=== PATIENT | female | born 1945 | race Caucasian/White ===

== ENCOUNTER 2025-02-13 08:07 | Inpatient (IN) ==
[2025-02-13] MEDS: KETOROLAC TROMETHAMINE 15 MG/ML VIAL IV STA (09:05)
[2025-02-13] MEDS: GABAPENTIN 300 MG CAP PO ONE (09:05)
[2025-02-13 09:26] LABS: Hematocrit (blood only) 37.8 % (37.0-47.0); Hemoglobin 12.5 g/dl (12.0-16.0); Immature Granulocytes # (auto) 0.14 K/uL (0.01-0.20); Immature Granulocytes % (auto) 1.6 %; Mean Corpuscular Hemoglobin 28.3 pg (25.0-34.0); Mean Corpuscular Volume 85.7 fL (80.0-100.0); Platelet Count 306 K/uL (130-400); RDW Standard Deviation 46.0 fL (36.4-46.3); Red Blood Count 4.41 M/uL (4.20-5.40); White Blood Count 8.85 K/ul (4.8-10.8)
[2025-02-13 09:45] LABS: Alanine Aminotransferase 31 U/L (7-52); Albumin Globulin Ratio 1.4 (0.9-2); Albumin Level 4.2 gm/dl (3.4-5.0); Alkaline Phosphatase 82 U/L (34-104); Anion Gap 10 (3-11); Bilirubin,Total 0.7 mg/dl (0.2-1.0); Blood Urea Nitrogen 16 mg/dl (6-23); Calcium 9.3 mg/dl (8.6-10.3); Carbon Dioxide 24 mmol/L (21-32); Chloride 93 mmol/L (98-107); Globulin 3.0 gm/dl (2.5-4.0); Glucose 114 mg/dl (70-99(Fasting)); Potassium 4.1 mmol/L (3.5-5.1); Sodium 127 mmol/L (136-145); Total Protein 7.2 gm/dl (6.0-8.3)
--- NOTE | 2025-02-13 10:00 | Emergency Department Note ---
Impression & Plan Hyponatremia, Bilateral lower extremity pain, DDD (degenerative disc disease), lumbar ED Provider Note NAME: MENDOZA GIL AGE: 79 SEX: F : 1945 ARRIVES VIA: Walk-In INFORMANT: Patient, family ED PROVIDER(S): Guerrero Antunez DO CHIEF COMPLAINT: lower extremity pain HPI: This is an 79-year-old female with no significant PMHx presenting to [facility] for further evaluation of lower extremity pain. Patient is accompanied by family members who provide additional history. The patient and her family members report ongoing lower extremity pain. She has never had anything like this before. States is worse in the anterior aspects of her bilateral thighs. Around the hallway down to her feet. Patient states that she has been in and out of the hospital. She has been in [facility] as well as [facility]. They deny fever or chills. No cough or congestion. Denies chest pain or palpitations. No shortness of breath. They deny abdominal pain, nausea and vomiting. No urinary complaints. No recent changes in bowel movements. Patient denies recent changes in medications or OTC supplements. Patient offers no other complaints, today. ADDITIONAL HISTORY OBTAINED: Per HPI Chronic Medical/Social Conditions Affecting Care: Per HPI PAST MEDICAL HISTORY: See Below PAST SURGICAL HISTORY: See Below FAMILY HISTORY: See Below SOCIAL HISTORY: See Below HOME MEDICATIONS: See Below ALLERGIES: See Below VITALS: See Below PHYSICAL EXAMINATION: GENERAL: Sitting up in bed, alert, well appearing, well nourished, no distress, non-toxic EYE EXAM: normal conjunctiva. PERRL and EOM's grossly intact. OROPHARYNX: no exudate, no erythema, lips, buccal mucosa, and tongue normal and mucous membranes are moist NECK: supple, no nuchal rigidity, no adenopathy, non-tender LUNGS: Clear to auscultation. Normal chest wall mechanics HEART: no murmurs, regular rate, regular rhythm ABDOMEN: abdomen soft, non-tender, no masses, no rebound or guarding. BACK: Back is symmetrical on inspection and there is no deformity, no midline tenderness, no CVA tenderness. No midline TTP or step offs. 5/5 strength in b/l LEs that are neurovascularly intact. 1/4 patellar reflexes bilaterally. EHL strength 5/5 bilaterally. SKIN: no rashes and no bruising UPPER EXTREMITIES: upper extremities are grossly normal. LOWER EXTREMITIES: No pitting edema. NEURO EXAM: Normal sensorium, GCS 15, normal speech, no gross weakness of arms, no gross weakness of legs. MEDICAL DECISION MAKING: Differential diagnoses includes but not limited to LBP, DDD, sciatica, UTI, AAA, pyelonephritis, nephrolithiasis, pancreatitis, musculoskeletal strain, muscle spasm, cord compression, spinal stenosis, polymyalgia rheumatica, electrolyte derangements, dehydration, neuropathic pain In summary, this is a 79 year old female who presented with lower extremity pain. Differential as above. Nursing notes and pertinent past medical records reviewed. Vital signs reviewed and the patient is mild tachycardia but otherwise afebrile and HDS. History and presentation revealed as above. Physical examination revealed as above. As a result of my initial evaluation, Patient is reporting severe lower extremity pain that is worse in her proximal thighs. It does run into the patient's lower extremities. Seems to be similar to neuropathic pain or possible claudication. She has palpable 2+ DP pulses. She is neurovascularly intact. Will obtain basic lab work as well as MRI for further characterization of possible lumbar spine pathology. Diagnostics interpreted by me include EKG and cardiac monitoring as listed below: -Cardiac Monitoring: An order was placed for continuous cardiac monitoring. The monitor shows a rate of 70-100s with regular rhythm. Patient completed laboratory studies and imaging. Results independently interpreted by me are acute hyponatremia that I feel is likely related to diet but will collect serum osmolality, urine osmolality as well as urine sodium. Inflammatory markers are mildly elevated including ESR 49 and a CRP of 0.78. No significant leukocytosis or anemia. Electrolytes and kidney function are otherwise unremarkable. I had a prolonged discussion with the patient and her family members that I do not feel that IV opiates will work well for her pain. I do feel that this is a component of neuropathic pain. Patient was managed initially with NSAIDs as well as gabapentin. Patient was given a dose of Valium while in the emergency department.. The patient was managed with IVFR and multimodal pain control. Patient's pain has poorly been controlled. MRI is unremarkable for pathology to suggest this. I do believe the patient likely has neuropathic pain but MRI noted possible ovarian mass. Will obtain a ultrasound for further characterization. Further workup for the patient's acute hyponatremia ordered. Patient will need inpatient management. Ultimately, the decision was made to admit the patient for severe pain with ambulatory dysfunction and acute hyponatremia. It was recommended to admit this patient at 1138. I discussed the case with the hospitalist service via telephone/Tiger[employer] and they are agreeable to admit the patient to their services. Based on the above, including the patient's age, coexisting illnesses, labs, imaging, and exam findings the decision to treat as an inpatient. I discussed the patient with the hospitalist team who recommended admission to their services. They received the medications, treatments, interventions indicated above and their condition remained stable. I discussed my findings with the patient and their family and they understand and agree with the treatment plan. All patient / family questions were answered to their satisfaction. Consults/Care Managements Discussions: Per MDM ER treatment provided: See above Procedures:none Critical Care: None The chart was completed utilizing [employer] Speech voice recognition software. Grammatical errors, random word insertions, pronoun errors, and incomplete sentences are an occasional consequence of this system due to software limitations, ambient noise, and hardware issues. Any formal questions or concerns about the content, text, or information contained within the body of this dictation should be directly addressed to the physician for clarification. Past Med/Surg History Problem List (Updated 02/13/25 @ 23:42 by Guerrero Antunez DO) DDD (degenerative disc disease), lumbar (Acute) Lumbar spondylosis Lumbar stenosis without neurogenic claudication Lumbar radicular pain Spondylolisthesis, lumbar region Bilateral lower extremity pain (Acute) Generalized weakness Pelvic cyst in female Hyponatremia (Acute) Bladder distension No pertinent past medical history Family History (Updated 02/13/25 @ 14:04 by Nory Pierre PA-C) Denies family history of Diabetes Heart disease Cancer Social History Smoking Status: Never smoker Hx Alcohol Use: No Hx Substance Use: No Preferred Language: Salvadorean Communication Ability: Effective General Internist Required: No Beliefs That Will Affect Care: None Current Living Situation: Spouse Other Information That Helps Us Care for You: No Feels Safe at Home: Yes Safety Concerns: Feels Safe At This Time Assistive Devices: Walker Allergies Allergies Allergy/AdvReac Type Severity Reaction Status Date / Time No Known Allergies Allergy Unverified 02/13/25 16:48 Home Meds Home Medications Medication Instructions Recorded Confirmed methylprednisolone 4 mg tablets in See Rx Instructions .Route .COMPLEX 02/13/25 02/13/25 a dose pack oxycodone 5 mg tablet 5 mg PO Q6H PRN Pain 02/13/25 02/13/25 Results & Data (ED) Vital Signs Vital Signs - 24 hr 02/13/25 08:10 02/13/25 08:35 02/13/25 08:39 Temperature 36.7 C Temperature Source Skin Pulse Rate 105 H 83 91 H Pulse Rate from SpO2 Sensor 90 Respiratory Rate 19 26 H Respiratory Effort / Characteristics Non-Labored Spontaneous Respiratory Depth Normal Respiratory Pattern Regular Blood Pressure 164/80 H Blood Pressure Mean 108 Blood Pressure Position Sitting Pulse Oximetry 100 99 Oxygen Delivery Method Room Air Room Air Sepsis Recent Fever Within 48 Hours No Sepsis New/Unexplained Change in Mental Status N/A Sepsis Action Taken by Nursing No Action Required 02/13/25 09:03 02/13/25 09:30 02/13/25 09:30 Temperature Temperature Source Pulse Rate 91 H 91 H Pulse Rate from SpO2 Sensor 87 Respiratory Rate 20 19 Respiratory Effort / Characteristics Respiratory Depth Respiratory Pattern Blood Pressure 176/111 H Blood Pressure Mean 137 Blood Pressure Position Pulse Oximetry 100 Oxygen Delivery Method Room Air Sepsis Recent Fever Within 48 Hours Sepsis New/Unexplained Change in Mental Status Sepsis Action Taken by Nursing 02/13/25 09:42 02/13/25 10:36 02/13/25 11:01 Temperature Temperature Source Pulse Rate 86 Pulse Rate from SpO2 Sensor Respiratory Rate 21 Respiratory Effort / Characteristics Respiratory Depth Respiratory Pattern Blood Pressure 169/100 H 190/91 H Blood Pressure Mean 109 101 Blood Pressure Position Pulse Oximetry Oxygen Delivery Method Sepsis Recent Fever Within 48 Hours Sepsis New/Unexplained Change in Mental Status Sepsis Action Taken by Nursing 02/13/25 11:24 02/13/25 11:30 02/13/25 11:30 Temperature Temperature Source Pulse Rate 80 73 Pulse Rate from SpO2 Sensor 79 73 Respiratory Rate 28 H 16 Respiratory Effort / Characteristics Respiratory Depth Respiratory Pattern Blood Pressure 204/108 H Blood Pressure Mean 149 Blood Pressure Position Pulse Oximetry 99 98 Oxygen Delivery Method Room Air Room Air Sepsis Recent Fever Within 48 Hours Sepsis New/Unexplained Change in Mental Status Sepsis Action Taken by Nursing 02/13/25 12:00 02/13/25 12:00 02/13/25 12:00 Temperature Temperature Source Pulse Rate 98 H Pulse Rate from SpO2 Sensor 103 H Respiratory Rate 22 Respiratory Effort / Characteristics Respiratory Depth Respiratory Pattern Blood Pressure 193/104 H 193/104 H Blood Pressure Mean 148 148 Blood Pressure Position Pulse Oximetry 91 Oxygen Delivery Method Room Air Sepsis Recent Fever Within 48 Hours Sepsis New/Unexplained Change in Mental Status Sepsis Action Taken by Nursing 02/13/25 12:24 02/13/25 12:30 02/13/25 13:12 Temperature Temperature Source Pulse Rate 94 H 86 Pulse Rate from SpO2 Sensor 86 Respiratory Rate 21 13 Respiratory Effort / Characteristics Respiratory Depth Respiratory Pattern Blood Pressure 178/98 H Blood Pressure Mean 104 Blood Pressure Position Pulse Oximetry 95 Oxygen Delivery Method Room Air Sepsis Recent Fever Within 48 Hours Sepsis New/Unexplained Change in Mental Status Sepsis Action Taken by Nursing Laboratory Data 02/13/25 09:00 02/13/25 21:15 Lab Results 02/13/25 02/13/25 Range/Units 09:00 11:19 WBC 8.85 (4.8-10.8) K/ul RBC 4.41 (4.20-5.40) M/uL Hgb 12.5 (12.0-16.0) g/dl Hct 37.8 (37.0-47.0) % MCV 85.7 (80.0-100.0) fL MCH 28.3 (25.0-34.0) pg MCHC 33.1 (32.0-36.0) g/dL RDW Std Deviation 46.0 (36.4-46.3) fL RDW Coeff of Chelsey 14.6 H (11.5-14.5) % Plt Count 306 (130-400) K/uL MPV 11.7 (9.4-12.4) fL Immature Gran % (Auto) 1.6 % Neut % (Auto) 67.2 % Lymph % (Auto) 18.4 % Floyd % (Auto) 10.3 % Eos % (Auto) 1.8 % Baso % (Auto) 0.7 % Neut # (Auto) 5.95 (1.40-6.50) K/uL Lymph # (Auto) 1.63 (1.20-3.40) K/uL Floyd # (Auto) 0.91 H (0.11-0.59) K/uL Eos # (Auto) 0.16 (0.00-0.50) K/uL Baso # (Auto) 0.06 (0.00-0.20) K/uL Immature Gran # (Auto) 0.14 (0.01-0.20) K/uL ESR 49 H (0-30) mm/hr Sodium 127 L (136-145) mmol/L Potassium 4.1 (3.5-5.1) mmol/L Chloride 93 L (98-107) mmol/L Carbon Dioxide 24 (21-32) mmol/L Anion Gap 10 (3-11) BUN 16 (6-23) mg/dl Creatinine 0.67 (0.6-1.2) mg/dl Est Cr Clr Drug Dosing Not Reportable eGFR 87.75 BUN/Creatinine Ratio 23.9 H (10-20) Glucose 114 H (70-99(Fasting)) mg/dl Osmolality 271 L (280-300) mOsm/kg Calcium 9.3 (8.6-10.3) mg/dl Total Bilirubin 0.7 (0.2-1.0) mg/dl AST 23 (13-39) U/L ALT 31 (7-52) U/L Alkaline Phosphatase 82 (34-104) U/L C-Reactive Protein 0.78 H (0-0.5) mg/dl Total Protein 7.2 (6.0-8.3) gm/dl Albumin 4.2 (3.4-5.0) gm/dl Globulin 3.0 (2.5-4.0) gm/dl Albumin/Globulin Ratio 1.4 (0.9-2) Urine Color Yellow Urine Appearance Clear (Clear) Urine pH 8.5 H (4.5-7.5) Ur Specific Woodman 1.009 (1.000-1.030) Urine Protein Negative (Negative) Urine Glucose (UA) Negative (Negative) Urine Ketones 2+ H (Negative) Urine Blood Negative (Negative) Urine Nitrite Negative (Negative) Urine Bilirubin Negative (Negative) Urine Urobilinogen Negative (Negative) Ur Leukocyte Esterase Negative (Negative) Urine Osmolality 357 L (500-800) mOsm/kg Ur Random Sodium 98 mmol/L Urine Comment Administered Medications Acetaminophen (Acetaminophen 500 Mg Tab) 1,000 mg PO Q8H [facility] Stop: 03/15/25 16:24 Last Admin: 02/13/25 21:24 Dose: 1,000 mg Documented By: Admin: 02/13/25 18:07 Dose: Not Given Documented By: INDIRA Dexamethasone 10 mg/ Syringe 2.5 mls @ 1 mls/min IV Q8H ANNELIESE Stop: 03/15/25 22:59 Last Admin: 02/13/25 21:25 Dose: 1 mls/min Documented By: FRANCISCO Melatonin (Melatonin 3 Mg Tab) 3 mg PO HS PRN PRN Reason: Insomnia Stop: 03/15/25 16:24 Last Admin: 02/13/25 21:24 Dose: 3 mg Documented By: ARTIA Discontinued Medications Dexamethasone (Dexamethasone Sod Inj 4 Mg/Ml Vial) 6 mg IV NOW STA Stop: 02/13/25 12:51 Last Admin: 02/13/25 13:01 Dose: 6 mg Documented By: DEBORAH Diazepam (Diazepam Inj 5 Mg/Ml 2 Ml Carp) 2.5 mg IV NOW ONE Stop: 02/13/25 09:49 Last Admin: 02/13/25 09:56 Dose: 2.5 mg Documented By: DEBORAH Droperidol (Droperidol 5 Mg/2 Ml Vial) 1.25 mg IV ONE STA Stop: 02/13/25 11:36 Last Admin: 02/13/25 12:11 Dose: 1.25 mg Documented By: DEBORAH Gabapentin (Gabapentin 300 Mg Cap) 300 mg PO ONCE ONE Stop: 02/13/25 08:38 Last Admin: 02/13/25 09:05 Dose: 300 mg Documented By: DEBORAH Gabapentin (Gabapentin 300 Mg Cap) 300 mg PO HS ANNELIESE Stop: 02/13/25 21:01 Last Admin: 02/13/25 21:25 Dose: 300 mg Documented By: FRANCISCO Sodium Chloride (Nss) 500 mls @ 999 mls/hr IV .Q31M ONE Stop: 02/13/25 10:30 Last Infusion: 02/13/25 12:15 Dose: Infused Documented By: Admin: 02/13/25 10:42 Dose: 999 mls/hr Documented By: NATALIAK Ketorolac Tromethamine (Ketorolac Tromethamine 15 Mg/Ml Vial) 15 mg IV NOW STA Stop: 02/13/25 08:37 Last Admin: 02/13/25 09:05 Dose: 15 mg Documented By: DEBORAH Imaging Data Radiologist's Impression: Pelvis Ultrasound 02/13/25 11:35 ULTRASOUND OF THE PELVIS CLINICAL HISTORY: Right adnexal cyst seen by MRI. COMPARISON STUDY: Lumbar spine MRI dated 02/13/2025 TECHNIQUE: Real-time, grayscale, and color flow sonography of the pelvis is performed transabdominally. Images are reviewed in the transverse and longitudinal planes. The patient declined the endovaginal examination. FINDINGS: Uterus: The uterus is surgically absent Ovaries: The left ovary was not visualized on the transabdominal examination, likely due to overlying bowel gas. There is a complex multiloculated cystic structure in the right posterior adnexa which measures 4.9 x 4.0 x 4.0 cm. This may be related to the right ovary and shows internal flow on color imaging. Pelvis: The bladder is significant bladder distention. There is no free fluid in the cul-de-sac. No left adnexal lesion is seen. IMPRESSION: 1. There is a complex multiloculated solid and cystic structure in the right posterior adnexa which corresponds to the lesion seen by MRI. This is likely related to the right ovary. The lesion is pathologically indeterminate, and a neoplastic process would be impossible to exclude. Follow-up with gynecology is recommended. 2. The uterus is surgically absent. 3. Nonvisualization of the left ovary. 4. Marked bladder distention. ACT 112: Negative or not required by law. Electronically signed by: Mateo Zuniga M.D. 02/13/2025 1:45 PM Discharge Plan Visit Data Chief Complaint: Neuro Symptoms/Deficit Stated Complaint: LEG NUMBNESS, FALL SEVERAL TIME ED Provider: Guerrero Antunez Discharge Problem: Hyponatremia, Bilateral lower extremity pain, DDD (degenerative disc disease), lumbar Patient Disposition: Admitted As Inpatient Condition: Fair Discharge Instructions Interventions: ED Discharge Assessment Last Done: 02/13/25 15:55
[2025-02-13] MEDS: SODIUM CHLORIDE 0.9% 500 ML IV ONE (10:42)
--- NOTE | 2025-02-13 11:21 | Magnetic Resonance Report ---
MRI OF THE LUMBAR SPINE WITHOUT IV CONTRAST CLINICAL HISTORY: Leg pain and numbness. COMPARISON STUDY: No priors. TECHNIQUE: MRI of the lumbar spine is performed utilizing various T1 and T2-weighted sequences in the axial and sagittal planes. IV contrast was not administered for this examination. The examination is compromised by motion artifact. FINDINGS: Lumbar spine: Marrow signal intensity is heterogeneous. Vertebral body height is maintained throughou t the lumbar spine. There is 6 mm of anterolisthesis at L4-L5. Alignment is otherwise preserved. Ante rior and lateral marginal osteophytes are seen throughout. The transverse and spinous processes appea r intact. There is no evidence of spondylolysis. A hemangioma suggested in the body of L2. No destruc tive bony lesion is seen. There is a Schmorl's node in the inferior endplate of L1. Chronic degenerat kathie endplate change is noted at several levels. There is mild degenerative endplate edema at L2-L3 an d L3-L4. Intervertebral discs: Disc desiccation loss of height is seen throughout the lumbar spine. Loss of he ight is moderate at L2-L3 and moderate the remaining levels. Spinal cord: Imaged portions of the spinal cord are normal in morphology and signal intensity. The co nus medullaris terminates at the level of L1. The nerve roots of the cauda equina are normal in morph ology. L1-L2: Unremarkable. L2-L3: There is broad-based posterior disc bulge with annular fissure. This abuts the transiting nerv e roots. No significant central canal stenosis is seen. Lateral disc bulges cause bilateral subarticu lar stenosis. In conjunction with facet arthropathy there is mild bilateral neural foraminal stenosis . L3-L4: There is broad-based posterior disc bulge with annular fissure. This abuts the transiting nerv e roots. No significant central canal stenosis is seen. Lateral disc bulges cause bilateral subarticu lar stenosis. This may abut the exiting bilateral L3 nerve roots. In conjunction with facet arthropat hy there is moderate left and mild right neural foraminal stenosis. L4-L5: There is broad-based posterior disc bulge with annular fissure which abuts the transiting nerv e roots. No significant central canal stenosis is seen. Hypertrophy of the ligamentum flavum effaces the lateral aspect of the posterior thecal sac bilaterally. Lateral disc bulges cause bilateral subar ticular stenosis and likely impinge on the exiting bilateral L4 nerve roots. In conjunction with face t arthropathy and anterolisthesis there is moderate right and moderate to severe left neural foramina l stenosis. L5-S1: There is broad-based posterior disc bulge with annular fissure which abuts the transiting nerv e roots. No central canal stenosis is seen. Lateral disc bulges cause bilateral subarticular stenosis and abut the exiting bilateral L5 nerve roots. In conjunction with facet arthropathy there is modera te bilateral neural foraminal stenosis. Sacrum: The imaged sacrum is normal in morphology and signal intensity. Soft tissues: There is mild fatty atrophy of the paraspinous musculature. The bladder is markedly dis tended. Left hydroureteronephrosis is partially visualized. No hydronephrosis is seen on the right. A multiloculated cystic structure is partially visualized in the right adnexa. IMPRESSION: 1. The bladder is markedly distended and left-sided hydroureteronephrosis is partially visualized. Th is may be related to the degree of bladder distention. This is incompletely evaluated and other etiol ogies are not excluded. 2. Multilevel lumbosacral spondylosis as above with no significant central canal stenosis. See discus savanah for detailed level by level analysis. 3. Degenerative disc disease as above with associated endplate change. 4. No destructive bony process is identified. 5. A multiloculated cystic structure is partially visualized in the right adnexa. This may be related to the right ovary. A pelvic ultrasound is recommended in follow-up. Electronically signed by: Mateo Zuniga M.D. 02/13/2025 11:20 AM
[2025-02-13 11:54] LABS: Appearance Urine Clear (Clear); Glucose Urine UA Negative (Negative)
[2025-02-13] MEDS: DROPERIDOL 5 MG/2 ML VIAL IV STA (12:11)
--- NOTE | 2025-02-13 12:57 | History & Physical Report ---
Date of Service February 13, 2025 Assessment & Plan (1) Bilateral lower extremity pain: (2) Generalized weakness: Plan: This is an 79yo F without any known significant medical history who presents with worsening bilateral leg pain x 1 week. L-spine MRI - Broad-based posterior bulge with annular fissure that abuts transitioning nerve roots noted from L2-S1 ESR 49 CRP 0.78 Persistent pain leading to ER visits at [facility] earlier this week Had a fall to ground earlier today in setting of generalized weakness 2/2 above In ED received - diazepam, gabapentin, droperidol, toradol with minimal relief Given Decadron 6mg IV x 1 Routine ortho spine consult Scheduled Tylenol, PRN oxycodone for moderate pain and Dilaudid for severe breakthrough pain PT/OT evals (3) Bladder distension: Plan: On L-spine MRI - Bladder is markedly distended and left-sided hydroureteronephrosis is partially visualized. This may be related to the degree of bladder distention Mishra catheter for decompression Also considering neurogenic component given nerve root involvement as above Consider urology if not improved (4) Hyponatremia: Plan: Initial Na 127 in setting of poor intake, considering SIADH component given severe pain Clinically appears slightly dry Serum osm 271 urine osm 357, random Na 98 Received 500ml NSS in ED - repeat BMP this afternoon (5) Pelvic cyst in female: Plan: A multiloculated cystic structure is partially visualized in the right adnexa. This may be related to the right ovary. A pelvic ultrasound is recommended in follow-up - automotive finance manager consult recommended and placed Plan DVT Ppx: SCDs for now Code status: FULL PCP: Not established with one in [place] yet, would like to Dispo: Admitted to med/surg Patient seen in collaboration with Dr. Altman. Please see addendum. I spent a total of 75 minutes coordinating, documenting, and providing care for this patient excluding time spent in the performance of separately billed services or time spent by another provider/QHP. History of Present Illness Chief Complaint: BLE pain Primary Care Provider: NO PCP This is an 79yo F without any known significant medical history who presents with worsening bilateral leg pain x 1 week. Patient lives in [place] but recently relocated here 2 weeks ago after getting remarried. Endorsing constant lower extremity pain from anterior thighs down to her ankles and feet that feels like a "spiraling" shock-like pain. Denies any numbness. Denies any bowel or bladder dysfunction. No pain in her back. Has been having generalized weakness and when she got up to stand yesterday her legs went out from under her and she fell to the ground, prompting her presenting to ED today. Does not have any known chronic medical conditions and does not take any meds at home other than the methylprednisolone taper and oxycodone she was prescribed at a hospital earlier this week. Has been treated at [facility], given opiates and discharged home without relief of symptoms. Decreased appetite in the setting of uncontrolled pain. No fever, chills, chest pain, shortness of breath, nausea, vomiting, and abdominal pain, dysuria, diarrhea or constipation. Allergies Allergy/AdvReac Type Severity Reaction Status Date / Time Unable to Assess Allergy Unverified 02/13/25 11:41 Home Medications Medication Instructions Recorded Confirmed Type methylprednisolone 4 mg tablets in See Rx Instructions .Route .COMPLEX 02/13/25 02/13/25 History a dose pack oxycodone 5 mg tablet 5 mg PO Q6H PRN Pain 02/13/25 02/13/25 History Past Med/Surg History Problem List (Updated 02/13/25 @ 14:09 by Nory Pierre PA-C) Bilateral lower extremity pain Generalized weakness Pelvic cyst in female Hyponatremia Bladder distension No pertinent past medical history Family History (Updated 02/13/25 @ 14:04 by Nory Pierre PA-C) Denies family history of Diabetes Heart disease Cancer Social History Smoking Status: Never smoker Preferred Language: Albanian Feels Safe at Home: Yes Review of Systems Review of Systems: At least ten systems reviewed and negative except as noted in the HPI. Physical Exam Physical Exam: General Appearance: WD/WN, vitals as above, NAD, sitting up in bed, conversing easily Head: normocephalic, atraumatic Eyes: normal inspection, PERRL, conjunctivae normal, anicteric sclerae ENT: external ear and nose normal, oropharynx with dry mucous membranes Neck: normal visual inspection Respiratory: normal respiratory effort, lungs clear to auscultation, no wheeze, rales, rhonchi. No accessory muscle use Cardiovascular: regular rate, rhythm,normal peripheral pulses, no BLE edema. Vessels: no JVD Abdomen/GI: normal bowel sounds, soft, nontender, no hepatosplenomegaly Extremities/Musculoskeletal: no cyanosis or clubbing, extremities motor strength 4/5 RLE 5/5 LLE Neurologic: PERRL, EOMI, accommodation nl, no face palsy, no dysarthria, CN's II-XI intact bilaterally and moves all extremities Psychiatric: A+Ox3, euthymic affect Skin: no rashes, normal color, warm/dry Results & Data Results & Data Vital Signs (Past 12 Hours) Vital Signs Temp Pulse Resp BP Pulse Ox O2 Del Method 02/13/25 12:00 193/104 H 02/13/25 12:00 98 H 22 91 Room Air 02/13/25 11:30 73 16 98 Room Air 02/13/25 11:30 204/108 H 02/13/25 11:24 80 28 H 99 Room Air 02/13/25 11:01 190/91 H 02/13/25 10:36 169/100 H 02/13/25 09:42 86 21 02/13/25 09:30 176/111 H 02/13/25 09:30 91 H 19 02/13/25 09:03 91 H 20 100 Room Air 02/13/25 08:39 91 H 26 H 99 Room Air 02/13/25 08:35 83 02/13/25 08:10 36.7 C 105 H 19 164/80 H 100 Room Air Laboratory Results Short CBC 02/13/25 Range/Units 09:00 WBC 8.85 (4.8-10.8) K/ul Hgb 12.5 (12.0-16.0) g/dl Hct 37.8 (37.0-47.0) % Plt Count 306 (130-400) K/uL BMP 02/13/25 09:00 Sodium 127 L Potassium 4.1 Chloride 93 L Carbon Dioxide 24 BUN 16 Creatinine 0.67 Glucose 114 H Calcium 9.3 Liver Function 02/13/25 Range/Units 09:00 Total Bilirubin 0.7 (0.2-1.0) mg/dl AST 23 (13-39) U/L ALT 31 (7-52) U/L Alkaline Phosphatase 82 (34-104) U/L Albumin 4.2 (3.4-5.0) gm/dl Urine 02/13/25 Range/Units 11:19 Urine Color Yellow Urine Appearance Clear (Clear) Urine pH 8.5 H (4.5-7.5) Ur Specific [place] 1.009 (1.000-1.030) Urine Protein Negative (Negative) Urine Glucose (UA) Negative (Negative) Diagnostic Findings Lumbar Spine MRI 02/13/25 08:36 MRI OF THE LUMBAR SPINE WITHOUT IV CONTRAST CLINICAL HISTORY: Leg pain and numbness. COMPARISON STUDY: No priors. TECHNIQUE: MRI of the lumbar spine is performed utilizing various T1 and T2- weighted sequences in the axial and sagittal planes. IV contrast was not administered for this examination. The examination is compromised by motion artifact. FINDINGS: Lumbar spine: Marrow signal intensity is heterogeneous. Vertebral body height is maintained throughout the lumbar spine. There is 6 mm of anterolisthesis at L4- L5. Alignment is otherwise preserved. Anterior and lateral marginal osteophytes are seen throughout. The transverse and spinous processes appear intact. There is no evidence of spondylolysis. A hemangioma suggested in the body of L2. No destructive bony lesion is seen. There is a Schmorl's node in the inferior endplate of L1. Chronic degenerative endplate change is noted at several levels. There is mild degenerative endplate edema at L2-L3 and L3-L4. Intervertebral discs: Disc desiccation loss of height is seen throughout the lumbar spine. Loss of height is moderate at L2-L3 and moderate the remaining levels. Spinal cord: Imaged portions of the spinal cord are normal in morphology and signal intensity. The conus medullaris terminates at the level of L1. The nerve roots of the cauda equina are normal in morphology. L1-L2: Unremarkable. L2-L3: There is broad-based posterior disc bulge with annular fissure. This abuts the transiting nerve roots. No significant central canal stenosis is seen. Lateral disc bulges cause bilateral subarticular stenosis. In conjunction with facet arthropathy there is mild bilateral neural foraminal stenosis. L3-L4: There is broad-based posterior disc bulge with annular fissure. This abuts the transiting nerve roots. No significant central canal stenosis is seen. Lateral disc bulges cause bilateral subarticular stenosis. This may abut the exiting bilateral L3 nerve roots. In conjunction with facet arthropathy there is moderate left and mild right neural foraminal stenosis. L4-L5: There is broad-based posterior disc bulge with annular fissure which abuts the transiting nerve roots. No significant central canal stenosis is seen. Hypertrophy of the ligamentum flavum effaces the lateral aspect of the posterior thecal sac bilaterally. Lateral disc bulges cause bilateral subarticular stenosis and likely impinge on the exiting bilateral L4 nerve roots. In conjunction with facet arthropathy and anterolisthesis there is moderate right and moderate to severe left neural foraminal stenosis. L5-S1: There is broad-based posterior disc bulge with annular fissure which abuts the transiting nerve roots. No central canal stenosis is seen. Lateral disc bulges cause bilateral subarticular stenosis and abut the exiting bilateral L5 nerve roots. In conjunction with facet arthropathy there is moderate bilateral neural foraminal stenosis. Sacrum: The imaged sacrum is normal in morphology and signal intensity. Soft tissues: There is mild fatty atrophy of the paraspinous musculature. The bladder is markedly distended. Left hydroureteronephrosis is partially visualized. No hydronephrosis is seen on the right. A multiloculated cystic structure is partially visualized in the right adnexa. IMPRESSION: 1. The bladder is markedly distended and left-sided hydroureteronephrosis is partially visualized. This may be related to the degree of bladder distention. This is incompletely evaluated and other etiologies are not excluded. 2. Multilevel lumbosacral spondylosis as above with no significant central canal stenosis. See discussion for detailed level by level analysis. 3. Degenerative disc disease as above with associated endplate change. 4. No destructive bony process is identified. 5. A multiloculated cystic structure is partially visualized in the right adnexa. This may be related to the right ovary. A pelvic ultrasound is recommended in follow-up. Electronically signed by: Mateo Zuniga M.D. 02/13/2025 11:20 AM Pelvis Ultrasound 02/13/25 11:35 ULTRASOUND OF THE PELVIS CLINICAL HISTORY: Right adnexal cyst seen by MRI. COMPARISON STUDY: Lumbar spine MRI dated 02/13/2025 TECHNIQUE: Real-time, grayscale, and color flow sonography of the pelvis is performed transabdominally. Images are reviewed in the transverse and longitudinal planes. The patient declined the endovaginal examination. FINDINGS: Uterus: The uterus is surgically absent Ovaries: The left ovary was not visualized on the transabdominal examination, likely due to overlying bowel gas. There is a complex multiloculated cystic structure in the right posterior adnexa which measures 4.9 x 4.0 x 4.0 cm. This may be related to the right ovary and shows internal flow on color imaging. Pelvis: The bladder is significant bladder distention. There is no free fluid in the cul-de-sac. No left adnexal lesion is seen. IMPRESSION: 1. There is a complex multiloculated solid and cystic structure in the right posterior adnexa which corresponds to the lesion seen by MRI. This is likely related to the right ovary. The lesion is pathologically indeterminate, and a neoplastic process would be impossible to exclude. Follow-up with gynecology is recommended. 2. The uterus is surgically absent. 3. Nonvisualization of the left ovary. 4. Marked bladder distention. ACT 112: Negative or not required by law. Electronically signed by: Mateo Zuniga M.D. 02/13/2025 1:45 PM
[2025-02-13] MEDS: DEXAMETHASONE SOD INJ 4 MG/ML VIAL IV STA (13:01)
[2025-02-13] MEDS ORDERED: HYDROmorphone INJ 0.5 MG/0.5 ML SYR IV PRN (13:41)
--- NOTE | 2025-02-13 13:46 | Ultrasound Report ---
ULTRASOUND OF THE PELVIS CLINICAL HISTORY: Right adnexal cyst seen by MRI. COMPARISON STUDY: Lumbar spine MRI dated 02/13/2025 TECHNIQUE: Real-time, grayscale, and color flow sonography of the pelvis is performed transabdominall y. Images are reviewed in the transverse and longitudinal planes. The patient declined the endovagina l examination. FINDINGS: Uterus: The uterus is surgically absent Ovaries: The left ovary was not visualized on the transabdominal examination, likely due to overlying bowel gas. There is a complex multiloculated cystic structure in the right posterior adnexa which me asures 4.9 x 4.0 x 4.0 cm. This may be related to the right ovary and shows internal flow on color im aging. Pelvis: The bladder is significant bladder distention. There is no free fluid in the cul-de-sac. No l eft adnexal lesion is seen. IMPRESSION: 1. There is a complex multiloculated solid and cystic structure in the right posterior adnexa which c orresponds to the lesion seen by MRI. This is likely related to the right ovary. The lesion is pathol ogically indeterminate, and a neoplastic process would be impossible to exclude. Follow-up with gynec ology is recommended. 2. The uterus is surgically absent. 3. Nonvisualization of the left ovary. 4. Marked bladder distention. ACT 112: Negative or not required by law. Electronically signed by: Mateo Zuniga M.D. 02/13/2025 1:45 PM
--- NOTE | 2025-02-13 14:13 | Orthopedic Consultation ---
Date of Service February 13, 2025 Assessment & Plan (1) Bilateral lower extremity pain: * Case/imaging reviewed and discussed with Dr Cooley * No urgent surgical intervention indicated based off imaging and exam * Recommend conservative care via medication, PT/OT * Would recommend gabapentin, steroid taper. Given hyponatremia we will defer initiating these medicines to hospital medicine team * Weight bearing status: Activity as tolerated * Daily treatment: Physical Therapy/ Occupational Therapy per protocol * Pain control * Disposition: TBD * Remainder care per primary team * Will continue to follow, may consider pain management consult pending patient progress (2) Spondylolisthesis, lumbar region: (3) Lumbar radicular pain: (4) Lumbar stenosis without neurogenic claudication: (5) Lumbar spondylosis: History of Present Illness Reason for Consultation: Bilateral leg pain, weakness Requesting Physician: . . Patient is a 79 y/o female with bilateral leg pain and weakness. No significant PMH on file. Presents to hospital with bilateral leg pain and weakness for approximately 1 week resulting in fall yesterday evening prompting presentation to ED today for further evaluation. Endorses constant lower extremity pain from anterior thigh to ankle but feels like it "spirals" down the leg. Denies numbness or tingling. Denies bowel or bladder dysfunction. Denies pain in the back. Current workup including MRI lumbar spine demonstrating multilevel lumbosacral spondylosis without significant central canal stenosis, multilevel degenerative disc disease, also distended bladder. Also found to have hyponatremia, NA 127. Admitted to hospital medicine team, orthopedics consulted for management recommendations. At time of exam patient lying comfortably in bed, no acute distress. Endorses constant ongoing pain of both legs from thigh to ankle, denies back pain. Even with imaging findings demonstrating distended bladder patient denies any recent changes to bowel or bladder function. Allergies Allergy/AdvReac Type Severity Reaction Status Date / Time No Known Allergies Allergy Unverified 02/13/25 16:48 Home Medications Medication Instructions Recorded Confirmed Type methylprednisolone 4 mg tablets in See Rx Instructions .Route .COMPLEX 02/13/25 02/13/25 History a dose pack oxycodone 5 mg tablet 5 mg PO Q6H PRN Pain 02/13/25 02/13/25 History Past Med/Surg History Problem List (Updated 02/13/25 @ 17:12 by Mateo Cooley MD) Lumbar spondylosis Lumbar stenosis without neurogenic claudication Lumbar radicular pain Spondylolisthesis, lumbar region Bilateral lower extremity pain Generalized weakness Pelvic cyst in female Hyponatremia Bladder distension No pertinent past medical history Family History (Updated 02/13/25 @ 14:04 by Nory Pierre PA-C) Denies family history of Diabetes Heart disease Cancer Social History Smoking Status: Never smoker Hx Alcohol Use: No Hx Substance Use: No Preferred Language: Cymro Communication Ability: Effective Tactical Intelligence Officer Required: No Beliefs That Will Affect Care: None Current Living Situation: Spouse Other Information That Helps Us Care for You: No Feels Safe at Home: Yes Safety Concerns: Feels Safe At This Time Assistive Devices: Walker Review of Systems All systems reviewed & are unremarkable except as noted in HPI & below. Physical Exam . * General: Alert and oriented, no acute distress * Constitutional: well-developed, well-nourished. * Respiratory: Normal respiratory effort, no distress * Gastrointestinal: No tenderness to palpation, no rigidity or guarding. * Skin: No rash or lesion. * Neurologic: Grossly normal * Musculoskeletal: Lumbar spine region without obvious deformity or overlying skin changes. Otherwise no deformity or skin changes noted to bilateral lower extremity. No specific tenderness of bilateral proximal thigh, distal thigh, knee, lower leg, foot/ankle. Limited AROM hip flexion, knee extension secondary to weakness and pain. Strength hip flexion 3/5 bilaterally, knee extension 3/5 bilaterally, ankle dorsiflexion 5/5 bilaterally, ankle plantarflexion 5/5 bilaterally. Sensation intact anterior thigh, medial /lateral lower leg, dorsal and plantar foot. Results & Data Results & Data Laboratory Results . 02/13/25 02/13/25 11:19 09:00 WBC 8.85 RBC 4.41 Hgb 12.5 Hct 37.8 MCV 85.7 MCH 28.3 MCHC 33.1 RDW Std Deviation 46.0 RDW Coeff of Chelsey 14.6 H Plt Count 306 MPV 11.7 Immature Gran % (Auto) 1.6 Neut % (Auto) 67.2 Lymph % (Auto) 18.4 [place] % (Auto) 10.3 Eos % (Auto) 1.8 Baso % (Auto) 0.7 Neut # (Auto) 5.95 Lymph # (Auto) 1.63 [place] # (Auto) 0.91 H Eos # (Auto) 0.16 Baso # (Auto) 0.06 Immature Gran # (Auto) 0.14 ESR 49 H Sodium 127 L Potassium 4.1 Chloride 93 L Carbon Dioxide 24 Anion Gap 10 BUN 16 Creatinine 0.67 Est Cr Clr Drug Dosing Not Reportable eGFR 87.75 BUN/Creatinine Ratio 23.9 H Glucose 114 H Osmolality 271 L Calcium 9.3 Total Bilirubin 0.7 AST 23 ALT 31 Alkaline Phosphatase 82 C-Reactive Protein 0.78 H Total Protein 7.2 Albumin 4.2 Globulin 3.0 Albumin/Globulin Ratio 1.4 Urine Color Yellow Urine Appearance Clear Urine pH 8.5 H Ur Specific [place] 1.009 Urine Protein Negative Urine Glucose (UA) Negative Urine Ketones 2+ H Urine Blood Negative Urine Nitrite Negative Urine Bilirubin Negative Urine Urobilinogen Negative Ur Leukocyte Esterase Negative Urine Osmolality 357 L Ur Random Sodium 98 Urine Comment Diagnostic Findings . Lumbar Spine MRI 02/13/25 08:36 MRI OF THE LUMBAR SPINE WITHOUT IV CONTRAST CLINICAL HISTORY: Leg pain and numbness. COMPARISON STUDY: No priors. TECHNIQUE: MRI of the lumbar spine is performed utilizing various T1 and T2- weighted sequences in the axial and sagittal planes. IV contrast was not administered for this examination. The examination is compromised by motion artifact. FINDINGS: Lumbar spine: Marrow signal intensity is heterogeneous. Vertebral body height is maintained throughout the lumbar spine. There is 6 mm of anterolisthesis at L4- L5. Alignment is otherwise preserved. Anterior and lateral marginal osteophytes are seen throughout. The transverse and spinous processes appear intact. There is no evidence of spondylolysis. A hemangioma suggested in the body of L2. No destructive bony lesion is seen. There is a Schmorl's node in the inferior endplate of L1. Chronic degenerative endplate change is noted at several levels. There is mild degenerative endplate edema at L2-L3 and L3-L4. Intervertebral discs: Disc desiccation loss of height is seen throughout the lumbar spine. Loss of height is moderate at L2-L3 and moderate the remaining levels. Spinal cord: Imaged portions of the spinal cord are normal in morphology and signal intensity. The conus medullaris terminates at the level of L1. The nerve roots of the cauda equina are normal in morphology. L1-L2: Unremarkable. L2-L3: There is broad-based posterior disc bulge with annular fissure. This abuts the transiting nerve roots. No significant central canal stenosis is seen. Lateral disc bulges cause bilateral subarticular stenosis. In conjunction with facet arthropathy there is mild bilateral neural foraminal stenosis. L3-L4: There is broad-based posterior disc bulge with annular fissure. This abuts the transiting nerve roots. No significant central canal stenosis is seen. Lateral disc bulges cause bilateral subarticular stenosis. This may abut the exiting bilateral L3 nerve roots. In conjunction with facet arthropathy there is moderate left and mild right neural foraminal stenosis. L4-L5: There is broad-based posterior disc bulge with annular fissure which abuts the transiting nerve roots. No significant central canal stenosis is seen. Hypertrophy of the ligamentum flavum effaces the lateral aspect of the posterior thecal sac bilaterally. Lateral disc bulges cause bilateral subarticular stenosis and likely impinge on the exiting bilateral L4 nerve roots. In conjunction with facet arthropathy and anterolisthesis there is moderate right and moderate to severe left neural foraminal stenosis. L5-S1: There is broad-based posterior disc bulge with annular fissure which abuts the transiting nerve roots. No central canal stenosis is seen. Lateral disc bulges cause bilateral subarticular stenosis and abut the exiting bilateral L5 nerve roots. In conjunction with facet arthropathy there is moderate bilateral neural foraminal stenosis. Sacrum: The imaged sacrum is normal in morphology and signal intensity. Soft tissues: There is mild fatty atrophy of the paraspinous musculature. The bladder is markedly distended. Left hydroureteronephrosis is partially visualized. No hydronephrosis is seen on the right. A multiloculated cystic structure is partially visualized in the right adnexa. IMPRESSION: 1. The bladder is markedly distended and left-sided hydroureteronephrosis is partially visualized. This may be related to the degree of bladder distention. This is incompletely evaluated and other etiologies are not excluded. 2. Multilevel lumbosacral spondylosis as above with no significant central canal stenosis. See discussion for detailed level by level analysis. 3. Degenerative disc disease as above with associated endplate change. 4. No destructive bony process is identified. 5. A multiloculated cystic structure is partially visualized in the right adnexa. This may be related to the right ovary. A pelvic ultrasound is recommended in follow-up. Electronically signed by: Mateo Zuniga M.D. 02/13/2025 11:20 AM Pelvis Ultrasound 02/13/25 11:35 ULTRASOUND OF THE PELVIS CLINICAL HISTORY: Right adnexal cyst seen by MRI. COMPARISON STUDY: Lumbar spine MRI dated 02/13/2025 TECHNIQUE: Real-time, grayscale, and color flow sonography of the pelvis is performed transabdominally. Images are reviewed in the transverse and longitudinal planes. The patient declined the endovaginal examination. FINDINGS: Uterus: The uterus is surgically absent Ovaries: The left ovary was not visualized on the transabdominal examination, likely due to overlying bowel gas. There is a complex multiloculated cystic structure in the right posterior adnexa which measures 4.9 x 4.0 x 4.0 cm. This may be related to the right ovary and shows internal flow on color imaging. Pelvis: The bladder is significant bladder distention. There is no free fluid in the cul-de-sac. No left adnexal lesion is seen. IMPRESSION: 1. There is a complex multiloculated solid and cystic structure in the right posterior adnexa which corresponds to the lesion seen by MRI. This is likely related to the right ovary. The lesion is pathologically indeterminate, and a neoplastic process would be impossible to exclude. Follow-up with gynecology is recommended. 2. The uterus is surgically absent. 3. Nonvisualization of the left ovary. 4. Marked bladder distention. ACT 112: Negative or not required by law. Electronically signed by: Mateo Zuniga M.D. 02/13/2025 1:45 PM PG Care Time/CCT Total # of Minutes Spent Total Time Spent with Patient: Total time spent is greater than 50% in coordination of care (as documented) at patient's floor/unit and/or counseling patient: Supervising Physician Co-Signing Physician Notes Patient seen and exained. Agree with HPI and exam as documented by Lang Heredia PA-C. Overall she is neurologically intact, slight hip flexion weakness likely due to pain rather than nerve deficit. She has an L4-5 spondylolisthesis with foraminal stenosis, no central stenosis. Mishra emptied 3L of urine per her report, she states she feels she has been limiting voiding due to pain. No saddle anesthesia, no genital numbness or progressive weakness to suggest cauda equina as a cause, also no central stenosis on lumbar MRI. Recommend pain control with anti-inflammatories and gabapentin or lyrica, will defer to IM team as to safe dosing for her hyponatremia and medical comorbidities. Encourage ambulation with PT, possible eval by pain management to discuss injections vs med changes. Would like to avoid surgery if possible and this is a reasonable goal as I do not see any emergent pathology, will work on pain control and PT. [place] [address] IN/OBS CONSULT LVL 3,45M Patient Type New Medical Decision Making Straight Forward Diagnoses Bilateral lower extremity pain M79.604; M79.605 Spondylolisthesis, lumbar region M43.16 Lumbar radicular pain M54.16 Lumbar stenosis without neurogenic claudication M48.061 Lumbar spondylosis M47.816
[2025-02-13 15:15] LABS: Anion Gap 7 (3-11); Blood Urea Nitrogen 16 mg/dl (6-23); Calcium 8.5 mg/dl (8.6-10.3); Carbon Dioxide 22 mmol/L (21-32); Chloride 95 mmol/L (98-107); Glucose 140 mg/dl (70-99(Fasting)); Potassium 4.1 mmol/L (3.5-5.1); Sodium 124 mmol/L (136-145)
--- NOTE | 2025-02-13 15:48 | Communication Note ---
Date of Service: February 13, 2025 Attending Addendum: Case reviewed with the advanced practitioner. I have personally performed a history and physical examination on the patient. I have reviewed the advanced practitioner's documentation on the date of service referenced in note, and I agree with, and take responsibility for the plan of care. please refer to her notes for full details patient seen and examined, records reviewed by myself as well on exam, patient seen resting in bed, not in distress reports BL lower extremity pain, constant, associated with weakness, inability to ambulate no numbness denies incontinence, dysuria no other symptoms VS noted and reviewed oriented x 3 , not in distress, speaks in sentences with no effort nor accessory muscle use normal rate, regular rhythm, no murmurs clear breath sounds bilaterally non distended, soft, nontender no bipedal edema, erythema, warmth BL lower ext strength: 4/5, sensation 100% all labs, imaging noted and reviewed ASSESSMENT AND PLAN> BILATERAL LOWER EXTREMITY PAIN LIKELY FROM L2-L5 LUMBAR SPINE DISC HERNIATION WITH FORAMINAL STENOSIS Decadron 6mg IV q8h Tylenol q8h, PRN Oxycodone, Morphine Ortho Spine consult PT/OT eval BLADDER DISTENTION WITH LEFT HYDRONEPHROSIS possible neurogenic bladder secondary to above neely cath bladder scan trial of voiding in 2 days RIGHT OVARIAN MULTILOCULATED, SOLID AND CYSTIC MASS R/O MALIGNANCY Delivery Sales Worker consulted other diagnoses and plan of care as per advanced practitioner's notes I spent a total of 40 minutes coordinating, documenting, and providing care for this patient, excluding time spent in the performance of separately billed services or time spent by another provider/QHP. Jairo Altman MD
[2025-02-13] MEDS ORDERED: ONDANSETRON INJ 2 MG/ML 2 ML VIAL IV PRN (16:25)
[2025-02-13] MEDS: ACETAMINOPHEN 500 MG TAB PO SCH (18:07)
[2025-02-13 19:35] LABS: Anion Gap 7.0 (3-11); Blood Urea Nitrogen 17.0 mg/dl (6-23); Calcium 8.7 mg/dl (8.6-10.3); Carbon Dioxide 23.0 mmol/L (21-32); Chloride 95.0 mmol/L (98-107); Creatinine Clr Calc Pharmacy 30.5 ml/min; Glucose 193.0 mg/dl (70-99(Fasting)); Potassium 4.8 mmol/L (3.5-5.1); Sodium 125.0 mmol/L (136-145)
[2025-02-13] MEDS ORDERED: GABAPENTIN 100 MG CAP PO SCH (21:00)
[2025-02-13] MEDS: MELATONIN 3 MG TAB PO PRN (21:24)
[2025-02-13] MEDS: dexAMETHasone 10 MG in SYRINGE 0 ML IV SCH (21:25)
[2025-02-13] MEDS: GABAPENTIN 300 MG CAP PO SCH (21:25)
[2025-02-13 21:50] LABS: Anion Gap 7.0 (3-11); Blood Urea Nitrogen 24.0 mg/dl (6-23); Calcium 8.9 mg/dl (8.6-10.3); Carbon Dioxide 21.0 mmol/L (21-32); Chloride 98.0 mmol/L (98-107); Creatinine Clr Calc Pharmacy 29.0 ml/min; Glucose 149.0 mg/dl (70-99(Fasting)); Potassium 4.7 mmol/L (3.5-5.1); Sodium 126.0 mmol/L (136-145)
--- NOTE | 2025-02-13 22:25 | XRay Report ---
Exam(s): XR CXR 1 VIEW EXAM: XR Chest, 1 View CLINICAL HISTORY: Reason for exam: hyponatremia. TECHNIQUE: Frontal view of the chest. COMPARISON: No relevant prior studies available. FINDINGS: Lungs: Lungs are mildly hyperexpanded with slightly coarse interstitial markings suggesting mild emphysema. No acute focal infiltrate or consolidation is seen. Pleural space: Unremarkable. No pneumothorax. Heart: Unremarkable. No cardiomegaly. Mediastinum: Unremarkable. Normal mediastinal contour. Bones/joints: Unremarkable. No acute fracture. Upper abdomen: Unremarkable as visualized. No pneumoperitoneum under the diaphragm. IMPRESSION: Lungs are mildly hyperexpanded with slightly coarse interstitial markings suggesting mild emphysema. No acute focal infiltrate or consolidation is seen. Electronically signed by: Omer Pierre MD 02/13/25 22:24 PM
[2025-02-13] MEDS ORDERED: DEXAMETHASONE SOD INJ 4 MG/ML VIAL IV SCH (23:00)
--- NOTE | 2025-02-13 23:52 | OB/GYN Consultation ---
Date of Consultation February 13, 2025 Assessment & Plan (1) Spondylolisthesis, lumbar region: (2) Bilateral lower extremity pain: (3) Complex cyst of right ovary: 79-year-old -0-0-2 postmenopausal female with incidental finding of 4 cm complex right ovarian cyst. No personal or family history of ovarian or breast cancer. Patient has hysterectomy in the past for heavy menstrual period and fibroids, politely declined pelvic exam today, Plan for ovarian cancer markers in the morning with a.m. labs and follow-up in office for repeat ultrasound as well as discussed the results for further plan, I will include our office number and discharge instructions please provide number when she is discharged, All questions were answered (4) History of hysterectomy for benign disease: (5) Post-menopause: History of Present Illness Attending Physician: Parker Bahena MD History of Present Illness Late entry from 22:40 p.m. patient is a 79-year-old G2, P2 postmenopausal female who was admitted for lower extremity pain, generalized weakness under medicine. MRI of lumbar spine noted A multiloculated cystic structure is partially visualized in the right adnexa. This may be related to the right ovary. A pelvic ultrasound is recommended in follow-up. pelvic ultrasound was also completed with results as follows: TECHNIQUE: Real-time, grayscale, and color flow sonography of the pelvis is performed transabdominally. Images are reviewed in the transverse and longitudinal planes. The patient declined the endovaginal examination. FINDINGS: Uterus: The uterus is surgically absent Ovaries: The left ovary was not visualized on the transabdominal examination, likely due to overlying bowel gas. There is a complex multiloculated cystic structure in the right posterior adnexa which measures 4.9 x 4.0 x 4.0 cm. This may be related to the right ovary and shows internal flow on color imaging. Pelvis: The bladder is significant bladder distention. There is no free fluid in the cul-de-sac. No left adnexal lesion is seen. IMPRESSION: 1. There is a complex multiloculated solid and cystic structure in the right posterior adnexa which corresponds to the lesion seen by MRI. This is likely related to the right ovary. The lesion is pathologically indeterminate, and a neoplastic process would be impossible to exclude. Follow-up with gynecology is recommended. 2. The uterus is surgically absent. 3. Nonvisualization of the left ovary. 4. Marked bladder distention. patient has no symptoms. She denies pelvic pain, vaginal pain, vaginal bleeding, discharge, itching or other. She has had hysterectomy when she was 39 years old for heavy menstrual bleeding and fibroids. . Her pathology was benign and she was told that she will not need Pap smears anymore. her ovaries were not removed. She believes she went through menopause around age 48 when she tried to use hormone replacement therapy but she had reaction to them and stopped shortly after trial. She has not to use them anymore. She was with same partner until age 74 when her first and she was for 4 years. Now she is to an 85-year-old man and they are not sexually active. When she was sexually active she had no problems, no pain, dryness, no postcoital bleeding. She denies any history of GAS APPLIANCE ADJUSTER problems including ovarian cysts, abnormal Pap smears, STDs. She is pretty healthy for her age she states she stretches about 20 minutes in the morning and then takes sauna but and walks her dog for 1 and 1/2 hours a day. she does not take any medications, she takes magnesium supplement. She eats healthy and her diet includes calcium with dairy. She states she has not seen GAS APPLIANCE ADJUSTER or any other doctors for many years. She most recently moved to this area she does not have any primary care nor GAS APPLIANCE ADJUSTER doctor locally. She denies any personal or family history of breast cancer, ovarian cancer or colon cancer. She has not had mammogram recently but she had them in the past and they were normal. I reviewed her ultrasound results, unable to look at the pictures due to PACS system is not opening tonight. Recommended blood work for ovarian cancer markers with a.m. labs and follow-up in the office to discuss the results. She understand if the markers are negative she may need follow-up ultrasound in few weeks. She agrees to follow-up in our office and schedule with me 3 months out. Allergies Allergy/AdvReac Type Severity Reaction Status Date / Time No Known Allergies Allergy Unverified 02/13/25 16:48 Home Medications Medication Instructions Recorded Confirmed Type methylprednisolone 4 mg tablets in See Rx Instructions .Route .COMPLEX 02/13/25 02/13/25 History a dose pack oxycodone 5 mg tablet 5 mg PO Q6H PRN Pain 02/13/25 02/13/25 History Patient History Family History Denies family history of Diabetes Heart disease Cancer Social History Smoking Status: Never smoker Hx Alcohol Use: No Hx Substance Use: No Preferred Language: Nepalese Communication Ability: Effective Media Reconciliation Specialist Required: No Beliefs That Will Affect Care: None Current Living Situation: Spouse Other Information That Helps Us Care for You: No Feels Safe at Home: Yes Safety Concerns: Feels Safe At This Time Assistive Devices: Walker Review of Systems Constitutional: as per Subjective / HPI Physical Exam Constitutional: WD/WN, vitals as above well developed, + thin, well groomed and comfortable Gastrointestinal (Abdomen): normal bowel sounds, soft, nontender, no hepatosplenomegaly Genitourinary: Patient politely declined pelvic exam. Results & Data Vital Signs (Past 12 Hours) Vital Signs Temp Pulse Pulse Resp BP BP Pulse Ox 02/13/25 19:57 36.7 C 99 H 16 113/71 95 02/13/25 16:25 36.8 C 103 H 18 162/87 H 95 02/13/25 15:55 100 H 17 168/90 H 95 02/13/25 14:00 164/92 H 02/13/25 13:51 99 H 22 02/13/25 13:42 94 H 15 02/13/25 13:12 86 13 95 02/13/25 12:30 178/98 H 02/13/25 12:24 94 H 21 02/13/25 12:00 193/104 H 02/13/25 12:00 193/104 H 02/13/25 12:00 98 H 22 91 O2 Del Method 02/13/25 19:57 Room Air 02/13/25 16:25 Room Air 02/13/25 15:55 Room Air 02/13/25 14:00 02/13/25 13:51 02/13/25 13:42 02/13/25 13:12 Room Air 02/13/25 12:30 02/13/25 12:24 02/13/25 12:00 02/13/25 12:00 02/13/25 12:00 Room Air
[2025-02-14 01:39] LABS: Anion Gap 6.0 (3-11); Blood Urea Nitrogen 24.0 mg/dl (6-23); Calcium 8.9 mg/dl (8.6-10.3); Carbon Dioxide 22.0 mmol/L (21-32); Chloride 98.0 mmol/L (98-107); Creatinine Clr Calc Pharmacy 39.9 ml/min; Glucose 160.0 mg/dl (70-99(Fasting)); Potassium 4.7 mmol/L (3.5-5.1); Sodium 126.0 mmol/L (136-145)
[2025-02-14] MEDS: SODIUM CHLORIDE 0.9% 500 ML IV ONE (03:00)
[2025-02-14 07:34] LABS: Hematocrit (blood only) 35.2 % (37.0-47.0); Hemoglobin 11.7 g/dl (12.0-16.0); Mean Corpuscular Hemoglobin 28.9 pg (25.0-34.0); Mean Corpuscular Volume 86.9 fL (80.0-100.0); Platelet Count 296 K/uL (130-400); RDW Standard Deviation 47.8 fL (36.4-46.3); Red Blood Count 4.05 M/uL (4.20-5.40); White Blood Count 7.57 K/ul (4.8-10.8)
[2025-02-14 07:55] LABS: Magnesium 2.6 mg/dl (1.7-2.4)
[2025-02-14 08:04] LABS: Anion Gap 7.0 (3-11); Blood Urea Nitrogen 21.0 mg/dl (6-23); Calcium 8.8 mg/dl (8.6-10.3); Carbon Dioxide 22.0 mmol/L (21-32); Chloride 101.0 mmol/L (98-107); Creatinine Clr Calc Pharmacy 52.4 ml/min; Glucose 145.0 mg/dl (70-99(Fasting)); Potassium 4.7 mmol/L (3.5-5.1); Sodium 130.0 mmol/L (136-145)
[2025-02-14] MEDS: POLYETHYLENE (MIRALAX) 17 GM PACK PO SCH (09:13)
[2025-02-14] MEDS: GABAPENTIN 300 MG CAP PO SCH (09:14)
--- NOTE | 2025-02-14 10:50 | Nephrology Consultation ---
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 sodium dipped to 124 within 6 hours of presentation and has since improved to 130 today. - control pain -avoid NSAIDs with pain control measures -continue to maintain eukalemia - liberalized FR to 1.5 L; protein shakes don't count toward FR -will dose IV lasix x 1 10 -aim for 50 gm daily protein intake -started urea 15 gm bid -daily bmp -no need to repeat urine studies yet -maintain eukalemia Orders placed; Dr Bahena updated History of Present Illness Reason for Consultation: hyponatremia Requesting Physician: Dr Bahena Attending Physician: Parker Bahena MD History of Present Illness 79-year-old female whom I am asked to evaluate for hyponatremia was admitted yesterday for evaluation of bilateral lower extremity pain and generalized weakness worsening in the preceding week. patient relocated to the area recently (to [facility] - wedding was 02/03) and denies any significant past medical history or chronic medical conditions or home medications. No known prior hx of hyponatremia; states she did have wellness checks but not clear if labs/dates. She did present on a methylprednisolone taper and oxycodone prescribed at to prior outside hospital evaluations earlier in the week for same symptoms which began abruptly 02/05; started visiting EDs 02/11 d/t pain. did have 2 falls in thsi timeframe after her knees buckled and she collapsed. Tells me she's been eating poorly through all of this d/t pain. denies AUDIO INSTALLER nsaid use. denies tobacco use hx or etOH or toxic lung exposures; retired hospital nurse. active at baseline > hikes. Presenting sodium here 127 with serum osmolality 271, urine osmolality 357, random urine sodium 98. She had 500 mg normal saline in the Emergency department and another 500 mL overnight. Also received a dose of ketorolac in the Emergency Department. Serum sodium today is 130. She is currently on a fluid limit 1.2 L daily. Orthopedics evaluated the patient and recommends conservative therapy including pain medications and PTOT. Brand Mgr evaluated the patient because of a complex 4 cm right ovarian cyst discovered on workup. Multiple labs were obtained to evaluate the cyst and outpatient follow-up is planned. pain control much improved since arrival much improved; no sob, no n/v/d, no chest pain/palpittinos, no cough/ uri sx, no edema. Allergies Allergy/AdvReac Type Severity Reaction Status Date / Time No Known Allergies Allergy Unverified 02/13/25 16:48 Home Medications Medication Instructions Recorded Confirmed Type methylprednisolone 4 mg tablets in See Rx Instructions .Route .COMPLEX 02/13/25 02/13/25 History a dose pack oxycodone 5 mg tablet 5 mg PO Q6H PRN Pain 02/13/25 02/13/25 History Patient History Family History Denies family history of Diabetes Heart disease Cancer Social History Smoking Status: Never smoker Hx Alcohol Use: No Hx Substance Use: No Preferred Language: Italian Communication Ability: Effective Acoustical Engineer Required: No Beliefs That Will Affect Care: None Current Living Situation: Spouse Feels Safe at Home: Yes Assistive Devices: None Review of Systems 2 Review of Systems: All systems reviewed & are unremarkable except as noted in HPI & below Physical Exam 2 Constitutional: well developed, well nourished, + thin and cooperative; no acute distress Eyes: EOM intact bilaterally ENMT: Mouth: + dry oral mucous membranes Respiratory: normal respiratory effort Auscultation: + diminished lung sounds Cardiovascular: RRR, no murmur, no edema Gastrointestinal (Abdomen): Inspection/Auscultation: normal bowel sounds P ercussion/Palpation: abdomen soft; abdomen nontender Musculoskeletal: Extremities: strength 5/5 throughout Skin: no rashes, warm and dry Neurologic: najera, fluent speech, + axial tremor Results & Data Vital Signs (Past 12 Hours) Vital Signs Temp Pulse Resp BP Pulse Ox O2 Del Method 02/14/25 07:42 36.4 C L 20 130/72 93 Room Air 02/14/25 00:05 36.3 C L 63 16 104/63 97 Room Air Laboratory Results 02/14/25 07:11 02/14/25 07:11 Diagnostic Findings Chest x-ray Lungs are mildly hyperexpanded with slightly coarse interstitial markings suggesting mild emphysema. No acute focal infiltrate or consolidation is seen.
--- NOTE | 2025-02-14 13:57 | Orthopedic Progress Note ---
Date of Service February 14, 2025 Assessment & Plan (1) Bilateral lower extremity pain: * Case/imaging reviewed and discussed with Dr Cooley * Symptoms significantly improved overnight * No surgical intervention indicated based off imaging and exam * Recommend conservative care via medication, PT/OT * Would recommend gabapentin, steroid taper. Given hyponatremia we will defer initiating these medicines to hospital medicine team * Weight bearing status: Activity as tolerated * Daily treatment: Physical Therapy/ Occupational Therapy per protocol * Pain control * Disposition: TBD * Remainder care per primary team * Will follow peripherally, can follow outpatient PRN (2) Spondylolisthesis, lumbar region: (3) Lumbar radicular pain: (4) Lumbar stenosis without neurogenic claudication: (5) Lumbar spondylosis: Subjective . Active Problems: S/p b/l leg pain 79 y/o female with bilateral leg pain. Doing well overall, pain managed and improved function. Significantly improved symptoms from yesterday. Denies fever/chills, chest pain/SOB, nausea/vomiting. Otherwise no complaints. Remains hyponatremic. Review of Systems All systems reviewed & are unremarkable except as noted in HPI & below. Physical Exam * General: Alert and oriented, no acute distress * Constitutional: well-developed, well-nourished. * Respiratory: Normal respiratory effort, no distress * Gastrointestinal: No tenderness to palpation, no rigidity or guarding. * Skin: No rash or lesion. * Neurologic: Grossly normal * Musculoskeletal: Lumbar spine region without obvious deformity or overlying skin changes. No tenderness lumbar region, b/l buttock or LE. Lumbar flexion/extension and rotation ROM with minimal pain. AROM b/l hip flexion, knee flexion/extension, ankle flexion/extension intact. Sensation intact plantar/dorsal foot. Brisk capillary refill. Results & Data Results & Data Laboratory Results . Diagnostic Findings . PG Care Time/CCT Total # of Minutes Spent Total Time Spent with Patient: Total time spent is greater than 50% in coordination of care (as documented) at patient's floor/unit and/or counseling patient: [place] [address] SUB INP/OBS CARE 1/25MIN Patient Type Established History Problem Focused Exam Problem Focused Medical Decision Making Straight Forward Diagnoses Bilateral lower extremity pain M79.604; M79.605 Spondylolisthesis, lumbar region M43.16 Lumbar radicular pain M54.16 Lumbar stenosis without neurogenic claudication M48.061 Lumbar spondylosis M47.816
--- NOTE | 2025-02-14 14:53 | Hospitalist Progress Note ---
Date of Service February 14, 2025 Assessment & Plan (1) Bilateral lower extremity pain: (2) Generalized weakness: Plan: This is an 79yo F without any known significant medical history who presents with worsening bilateral leg pain x 1 week. L-spine MRI - Broad-based posterior bulge with annular fissure that abuts transitioning nerve roots noted from L2-S1 ESR 49 CRP 0.78 Persistent pain leading to ER visits at [place] and [facility] earlier this week Had a fall to ground in setting of generalized weakness 2/2 above In ED received - diazepam, gabapentin, droperidol, toradol with minimal relief Given Decadron 6mg IV x 1 Ortho spine consulted - no plan surgical intervention. PT/OT, pain management prn Pt was started on dexamethasone and gabapentin on admission PT/OT evals Currently she is feeling much improved, she is able to stand up from bed (3) Bladder distension: Plan: On L-spine MRI - Bladder is markedly distended and left-sided hydroureteronephrosis is partially visualized. This may be related to the degree of bladder distention Mishra catheter for decompression Also considering neurogenic component secondary to above Voiding trial in 2 days Consider urology if not improved (4) Hyponatremia: Plan: Initial Na 127 in setting of poor intake, considering SIADH component given severe pain Serum osm 271 urine osm 357, random Na 98 Received 500ml NSS in ED - repeat Na that PM 125/126 Na this AM 130 Nephrology consulted - cont. FR, started urea and small dose lasix (5) Pelvic cyst in female: Plan: A multiloculated cystic structure is partially visualized in the right adnexa. This may be related to the right ovary. A pelvic ultrasound is recommended in follow-up - director global sales consult recommended and placed Pelvic US 1. There is a complex multiloculated solid and cystic structure in the right posterior adnexa which corresponds to the lesion seen by MRI. This is likely related to the right ovary. The lesion is pathologically indeterminate, and a neoplastic process would be impossible to exclude. Follow-up with gynecology is recommended. 2. The uterus is surgically absent. 3. Nonvisualization of the left ovary. 4. Marked bladder distention. Accounting Associate consulted - several tumor markers ordered - plan to follow up as outpt Plan DVT Ppx: SCDs for now Code status: FULL PCP: Not established with one in [place] yet, would like to - [facility] liaison aware Dispo: med/surg Admission and Anticipated Discharge Date Admission Date: February 13, 2025 Subjective Pt seen in follow up of anterior leg pain, pt was not able to stand up, had falls, was seen in 2 different ERs Currently feeling much better. On admission just finished medrol pack and was on oxycodone - which she says did not agree with her well. She was started on dexamethasone and ortho spine was consulted - no plan for surgery. Also pt says pain is much improved and she was able to get up from bed multiple times today. No fevers, chills chest pain, shortness of breath, no abd. pain, n/v Pt also found to be hyponatremic - discussed w/ nephrology - plan to start urea Also found adnexal mass and director global sales consulted - tumor markers ordered - plan to follow up as outpt Review of Systems Review of Systems: All systems reviewed & are unremarkable except as noted in Subjective Physical Exam Physical Exam: General Appearance: WD/WN elderly F in NAD, sitting up in bed, conversing easily Head: normocephalic, atraumatic Eyes: normal inspection, PERRL ENT: external ear and nose normal Neck: normal visual inspection Respiratory: normal respiratory effort, lungs clear to auscultation, no wheeze, rales, rhonchi. No accessory muscle use Cardiovascular: regular rate, rhythm,no BLE edema. Abdomen/GI: normal bowel sounds, soft, nontender Extremities/Musculoskeletal: moves extremities, can stand up from bed Neurologic: PERRL, EOMI, no face palsy, no dysarthria, answers appropriately, moves all extremities Psychiatric: A+Ox3, euthymic affect Skin: no rashes, normal color, warm/dry Results & Data Results & Data Vital Signs (Past 12 Hours) Vital Signs Temp Resp BP Pulse Ox O2 Del Method 02/14/25 07:42 36.4 C L 20 130/72 93 Room Air Laboratory Results 02/14/25 02/14/25 02/13/25 Range/Units 07:11 00:58 21:15 WBC 7.57 (4.8-10.8) K/ul RBC 4.05 L (4.20-5.40) M/uL Hgb 11.7 L (12.0-16.0) g/dl Hct 35.2 L (37.0-47.0) % MCV 86.9 (80.0-100.0) fL MCH 28.9 (25.0-34.0) pg MCHC 33.2 (32.0-36.0) g/dL RDW Std Deviation 47.8 H (36.4-46.3) fL RDW Coeff of Chelsey 15.0 H (11.5-14.5) % Plt Count 296 (130-400) K/uL MPV 11.6 (9.4-12.4) fL Sodium 130 L 126 L 126 L (136-145) mmol/L Potassium 4.7 4.7 4.7 (3.5-5.1) mmol/L Chloride 101 98 98 (98-107) mmol/L Carbon Dioxide 22 22 21 (21-32) mmol/L Anion Gap 7 6 7 (3-11) BUN 21 24 H 24 H (6-23) mg/dl Creatinine 0.67 0.88 D 1.21 H (0.6-1.2) mg/dl Est Cr Clr Drug Dosing 52.4 39.9 29.0 eGFR 87.75 65.98 45.03 BUN/Creatinine Ratio 31.3 H 27.3 H 19.8 (10-20) Glucose 145 H 160 H 149 H (70-99(Fasting)) mg/dl Calcium 8.8 8.9 8.9 (8.6-10.3) mg/dl Phosphorus 4.5 (2.5-4.9) mg/dl Magnesium 2.6 H (1.7-2.4) mg/dl Lactate Dehydrogenase 196 (86-244) U/L Tumor Marker AFP Pending Carcinoembryonic Ag 0.8 (0-2.5) ng/ml CA 19-9 Antigen Pending CA 125 Antigen Pending HCG, Quant 4 mIU/ml 02/13/25 02/13/25 Range/Units 18:10 14:42 WBC (4.8-10.8) K/ul RBC (4.20-5.40) M/uL Hgb (12.0-16.0) g/dl Hct (37.0-47.0) % MCV (80.0-100.0) fL MCH (25.0-34.0) pg MCHC (32.0-36.0) g/dL RDW Std Deviation (36.4-46.3) fL RDW Coeff of Chelsey (11.5-14.5) % Plt Count (130-400) K/uL MPV (9.4-12.4) fL Sodium 125 L 124 L (136-145) mmol/L Potassium 4.8 4.1 (3.5-5.1) mmol/L Chloride 95 L 95 L (98-107) mmol/L Carbon Dioxide 23 22 (21-32) mmol/L Anion Gap 7 7 (3-11) BUN 17 16 (6-23) mg/dl Creatinine 1.15 D 0.73 (0.6-1.2) mg/dl Est Cr Clr Drug Dosing 30.5 Not Reportable eGFR 47.86 82.57 BUN/Creatinine Ratio 14.8 21.9 H (10-20) Glucose 193 H 140 H (70-99(Fasting)) mg/dl Calcium 8.7 8.5 L (8.6-10.3) mg/dl Phosphorus (2.5-4.9) mg/dl Magnesium (1.7-2.4) mg/dl Lactate Dehydrogenase (86-244) U/L Tumor Marker AFP Carcinoembryonic Ag (0-2.5) ng/ml CA 19-9 Antigen CA 125 Antigen HCG, Quant mIU/ml Medications Administered Current Inpatient Medications Acetaminophen (Acetaminophen 500 Mg Tab) 1,000 mg PO Q8H [facility] Stop: 03/15/25 16:24 Last Admin: 02/14/25 09:13 Dose: 1,000 mg Cyclobenzaprine HCl (Cyclobenzaprine Hcl 5 Mg Tab) 5 mg PO TID PRN PRN Reason: Muscle Spasm Stop: 03/15/25 20:59 Gabapentin (Gabapentin 300 Mg Cap) 300 mg PO TID ANNELIESE Stop: 03/17/25 08:59 Gabapentin (Gabapentin 300 Mg Cap) 300 mg PO BID ANNELIESE Stop: 02/14/25 21:01 Last Admin: 02/14/25 09:14 Dose: 300 mg Hydromorphone HCl (Hydromorphone Inj 0.5 Mg/0.5 Ml Syr) 0.5 mg IV Q4H PRN PRN Reason: Severe Pain (Scale 7, 8, 9,10) Stop: 02/27/25 13:40 Dexamethasone 10 mg/ Syringe 2.5 mls @ 1 mls/min IV Q8H ANNELIESE Stop: 03/15/25 22:59 Last Admin: 02/14/25 06:07 Dose: 1 mls/min Melatonin (Melatonin 3 Mg Tab) 3 mg PO HS PRN PRN Reason: Insomnia Stop: 03/15/25 16:24 Last Admin: 02/13/25 21:24 Dose: 3 mg Ondansetron HCl (Ondansetron Inj 2 Mg/Ml 2 Ml Vial) 4 mg IV Q6H PRN PRN Reason: Nausea Stop: 03/15/25 16:24 Oxycodone HCl (Oxycodone Hcl Ir 5 Mg Tab (Immediate Release)) 5 mg PO Q6H PRN PRN Reason: Moderate Pain (Scale 4, 5, 6) Stop: 02/27/25 16:24 Polyethylene Glycol (Polyethylene (Miralax) 17 Gm Pack) 17 gm PO DAILY [facility] Stop: 03/16/25 08:59 Last Admin: 02/14/25 09:13 Dose: 17 gm Urea (Urea (Urea-Na) 15 Gm Pack) 15 gm PO BID [facility] Stop: 03/16/25 14:09
[2025-02-14] MEDS: FUROSEMIDE INJ 20 MG/2 ML VIAL IV ONE (15:02)
[2025-02-14] MEDS: UREA (UREA-NA) 15 GM PACK PO SCH (15:02)
[2025-02-15] MEDS: CYCLOBENZAPRINE HCL 5 MG TAB PO PRN (05:49)
[2025-02-15 07:34] LABS: Hematocrit (blood only) 33.1 % (37.0-47.0); Hemoglobin 11.3 g/dl (12.0-16.0); Mean Corpuscular Hemoglobin 30.0 pg (25.0-34.0); Mean Corpuscular Volume 87.8 fL (80.0-100.0); Platelet Count 291 K/uL (130-400); RDW Standard Deviation 48.1 fL (36.4-46.3); Red Blood Count 3.77 M/uL (4.20-5.40); White Blood Count 10.82 K/ul (4.8-10.8)
[2025-02-15] MEDS: dexAMETHasone 10 MG in SYRINGE 0 ML IV SCH ×2 (07:41→16:18)
[2025-02-15] MEDS: GABAPENTIN 300 MG CAP PO SCH (07:42)
[2025-02-15 08:16] LABS: Anion Gap 6.0 (3-11); Blood Urea Nitrogen 53.0 mg/dl (6-23); Calcium 8.9 mg/dl (8.6-10.3); Carbon Dioxide 26.0 mmol/L (21-32); Chloride 101.0 mmol/L (98-107); Creatinine Clr Calc Pharmacy 46.8 ml/min; Glucose 104.0 mg/dl (70-99(Fasting)); Magnesium 2.5 mg/dl (1.7-2.4); Potassium 4.0 mmol/L (3.5-5.1); Sodium 133.0 mmol/L (136-145)
--- NOTE | 2025-02-15 09:35 | Nephrology Progress Note ---
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 sodium dipped to 124 within 6 hours of presentation and has since improved to 133 today w/ appropriate rate of improvement. She is telling me that she no longer plans to stay in the area and will instead return to [place]; asking for referrals to/at [facility]; has no current /past providers there. Will sign off - continue twice daily urea while in-house - have ordered 10 mg IV Lasix daily while in-house as well as daily potassium bid -have ordered for dietitian to teach patient about accessible affordable palatable protein sources and low sodium diet for after discharge - pls d/c neely when able Diagnosis: - moderate hypotonic hyponatremia from SIADH, chronicity unclear - bilateral lower extremity pain and weakness Prescriptions: - Lasix 10 mg daily (1/2 of a 20 mg tablet; if unable to cut could do 20 mg every other day but daily 10 mg preferred) -potassium 10 mEq daily Other care: -Continue fluid limit 1.5 L/ 50 oz daily after d/c -protein shakes do not count towards fluid limit -aim for at least 50 g daily protein intake -low sodium diet -Basic metabolic panel to Wednesday x3 to be ordered by Nephrology nurse if staying in state -avoid NSAIDs with pain control measures Follow-up appointments -hospital discharge appointment with me in 2-3 weeks; video okay if in state; I cannot take care of her if she's outside of [place] >>>if leaving the state, will need to have ? new PCP order labs; she should still be evaluated by nephro at least once, possibly longer as chronicity of hyponatremia unknown and therapies will need to be reevaluated IP orders placed; Dr Bahena updated in person Plan Time spent 50 minutes Admission and Anticipated Discharge Date Admission Date: February 13, 2025 Subjective no acute interval events clinically. feels a bit of pain returning today BL legs. no sob, denies confusion, n/v. has neely. ortho recommending conservative measures Review of Systems 2 Review of Systems: All systems reviewed & are unremarkable except as noted in Subjective Physical Exam 2 Constitutional: well developed, well nourished, + thin and cooperative; no acute distress Eyes: EOM intact bilaterally ENMT: Mouth: + dry oral mucous membranes Respiratory: normal respiratory effort Auscultation: + diminished lung sounds Cardiovascular: RRR, no murmur, no edema Gastrointestinal (Abdomen): Inspection/Auscultation: normal bowel sounds P ercussion/Palpation: abdomen soft; abdomen nontender Musculoskeletal: Extremities: strength 5/5 throughout Skin: no rashes, warm and dry Results & Data Vital Signs (Past 12 Hours) Vital Signs Temp Pulse Resp BP Pulse Ox O2 Del Method 02/15/25 07:00 36.6 C 75 14 123/72 95 Room Air 02/14/25 22:55 36.6 C 83 12 120/68 94 Room Air Laboratory Results 02/15/25 07:01 02/15/25 07:01
[2025-02-15] MEDS: FUROSEMIDE INJ 20 MG/2 ML VIAL IV SCH (10:35)
[2025-02-15] MEDS: POTASSIUM CHLORIDE 10 MEQ TABCR PO SCH (10:35)
--- NOTE | 2025-02-15 18:08 | Hospitalist Progress Note ---
Date of Service February 15, 2025 Assessment & Plan (1) Bilateral lower extremity pain: (2) Generalized weakness: Plan: This is an 79yo F without any known significant medical history who presents with worsening bilateral leg pain x 1 week. L-spine MRI - Broad-based posterior bulge with annular fissure that abuts transitioning nerve roots noted from L2-S1 ESR 49 CRP 0.78 Persistent pain leading to ER visits at [facility] and [facility] earlier this week Had a fall to ground in setting of generalized weakness 2/2 above In ED received - diazepam, gabapentin, droperidol, toradol with minimal relief Given Decadron 6mg IV x 1 Ortho spine consulted - no plan surgical intervention. PT/OT, pain management prn Pt was started on dexamethasone and gabapentin on admission PT/OT evals 02/14 Currently she is feeling much improved, she is able to stand up from bed 02/15 Today says she still has pain in ankles but anterior leg/thigh pain seems gone. Also feels tired, says she has not slept for days. (3) Bladder distension: Plan: On L-spine MRI - Bladder is markedly distended and left-sided hydroureteronephrosis is partially visualized. This may be related to the degree of bladder distention Mishra catheter for decompression Also considering neurogenic component secondary to above Voiding trial in 2 days Consider urology if not improved (4) Hyponatremia: Plan: Initial Na 127 in setting of poor intake, considering SIADH component given severe pain Serum osm 271 urine osm 357, random Na 98 Received 500ml NSS in ED - repeat Na that PM 125/126 Na this AM 130 Nephrology consulted - cont. FR, started urea and small dose lasix (5) Pelvic cyst in female: Plan: A multiloculated cystic structure is partially visualized in the right adnexa. This may be related to the right ovary. A pelvic ultrasound is recommended in follow-up - land acquisition specialist consult recommended and placed Pelvic US 1. There is a complex multiloculated solid and cystic structure in the right posterior adnexa which corresponds to the lesion seen by MRI. This is likely related to the right ovary. The lesion is pathologically indeterminate, and a neoplastic process would be impossible to exclude. Follow-up with gynecology is recommended. 2. The uterus is surgically absent. 3. Nonvisualization of the left ovary. 4. Marked bladder distention. Employment Counselor consulted - several tumor markers ordered - plan to follow up as outpt Plan DVT Ppx: SCDs for now Code status: FULL PCP: Not established with one in [place] yet, would like to - [facility] liaison aware Dispo: med/surg Admission and Anticipated Discharge Date Admission Date: February 13, 2025 Subjective Pt seen in follow up of anterior leg pain, pt was not able to stand up, had falls, was seen in 2 different ERs Yesterday was feeling much better. Was able to stand up easily from bed. Today says her anterior leg pain is gone but her ankles hurt. She was started on dexamethasone and ortho spine was consulted - no plan for surgery. No fevers, chills chest pain, shortness of breath, no abd. pain, n/v Pt also found to be hyponatremic - discussed w/ nephrology - started urea, lasix Also found adnexal mass and land acquisition specialist consulted - tumor markers ordered - plan to follow up as outpt Review of Systems Review of Systems: All systems reviewed & are unremarkable except as noted in Subjective Physical Exam Physical Exam: General Appearance: WD/WN elderly F in NAD, sitting up in bed, conversing easily Head: normocephalic, atraumatic Eyes: normal inspection, PERRL ENT: external ear and nose normal Neck: normal visual inspection Respiratory: normal respiratory effort, lungs clear to auscultation, no wheeze, rales, rhonchi. No accessory muscle use Cardiovascular: regular rate, rhythm,no BLE edema. Abdomen/GI: normal bowel sounds, soft, nontender Extremities/Musculoskeletal: moves extremities, can stand up from bed Neurologic: PERRL, EOMI, no face palsy, no dysarthria, answers appropriately, moves all extremities Psychiatric: A+Ox3, euthymic affect Skin: no rashes, normal color, warm/dry Results & Data Results & Data Vital Signs (Past 12 Hours) Vital Signs Temp Pulse Resp BP Pulse Ox O2 Del Method 02/15/25 14:17 36.8 C 86 16 115/70 93 Room Air 02/15/25 07:00 36.6 C 75 14 123/72 95 Room Air Laboratory Results 02/15/25 Range/Units 07:01 WBC 10.82 H (4.8-10.8) K/ul RBC 3.77 L (4.20-5.40) M/uL Hgb 11.3 L (12.0-16.0) g/dl Hct 33.1 L (37.0-47.0) % MCV 87.8 (80.0-100.0) fL MCH 30.0 (25.0-34.0) pg MCHC 34.1 (32.0-36.0) g/dL RDW Std Deviation 48.1 H (36.4-46.3) fL RDW Coeff of Chelsey 15.1 H (11.5-14.5) % Plt Count 291 (130-400) K/uL MPV 12.0 (9.4-12.4) fL Sodium 133 L (136-145) mmol/L Potassium 4.0 (3.5-5.1) mmol/L Chloride 101 (98-107) mmol/L Carbon Dioxide 26 (21-32) mmol/L Anion Gap 6 (3-11) BUN 53 H D (6-23) mg/dl Creatinine 0.75 (0.6-1.2) mg/dl Est Cr Clr Drug Dosing 46.8 ml/min eGFR 79.93 BUN/Creatinine Ratio 70.7 H (10-20) Glucose 104 H (70-99(Fasting)) mg/dl Calcium 8.9 (8.6-10.3) mg/dl Phosphorus 4.2 (2.5-4.9) mg/dl Magnesium 2.5 H (1.7-2.4) mg/dl Medications Administered Current Inpatient Medications Acetaminophen (Acetaminophen 500 Mg Tab) 1,000 mg PO Q8H ANNELIESE Stop: 03/15/25 16:24 Last Admin: 02/15/25 16:18 Dose: 1,000 mg Cyclobenzaprine HCl (Cyclobenzaprine Hcl 5 Mg Tab) 5 mg PO TID PRN PRN Reason: Muscle Spasm Stop: 03/15/25 20:59 Last Admin: 02/15/25 05:49 Dose: 5 mg Furosemide (Furosemide Inj 20 Mg/2 Ml Vial) 10 mg IV DAILY ANNELIESE Stop: 03/17/25 09:44 Last Admin: 02/15/25 10:35 Dose: 10 mg Gabapentin (Gabapentin 300 Mg Cap) 300 mg PO TID ANNELIESE Stop: 03/17/25 08:59 Last Admin: 02/15/25 14:20 Dose: 300 mg Hydromorphone HCl (Hydromorphone Inj 0.5 Mg/0.5 Ml Syr) 0.5 mg IV Q4H PRN PRN Reason: Severe Pain (Scale 7, 8, 9,10) Stop: 02/27/25 13:40 Dexamethasone 10 mg/ Syringe 2.5 mls @ 1 mls/min IV Q8H ANNELIESE Stop: 03/17/25 15:59 Last Admin: 02/15/25 16:18 Dose: 1 mls/min Melatonin (Melatonin 3 Mg Tab) 3 mg PO HS PRN PRN Reason: Insomnia Stop: 03/15/25 16:24 Last Admin: 02/13/25 21:24 Dose: 3 mg Ondansetron HCl (Ondansetron Inj 2 Mg/Ml 2 Ml Vial) 4 mg IV Q6H PRN PRN Reason: Nausea Stop: 03/15/25 16:24 Oxycodone HCl (Oxycodone Hcl Ir 5 Mg Tab (Immediate Release)) 5 mg PO Q6H PRN PRN Reason: Moderate Pain (Scale 4, 5, 6) Stop: 02/27/25 16:24 Polyethylene Glycol (Polyethylene (Miralax) 17 Gm Pack) 17 gm PO DAILY [facility] Stop: 03/16/25 08:59 Last Admin: 02/15/25 08:14 Dose: 17 gm Potassium Chloride (Potassium Chloride 10 Meq Tabcr) 10 meq PO BID [facility] Stop: 03/17/25 09:44 Last Admin: 02/15/25 10:35 Dose: 10 meq Urea (Urea (Urea-Na) 15 Gm Pack) 15 gm PO BID [facility] Stop: 03/16/25 14:09 Last Admin: 02/15/25 07:42 Dose: 15 gm
[2025-02-16 07:25] LABS: Hematocrit (blood only) 32.4 % (37.0-47.0); Hemoglobin 11.1 g/dl (12.0-16.0); Mean Corpuscular Hemoglobin 29.8 pg (25.0-34.0); Mean Corpuscular Volume 87.1 fL (80.0-100.0); Platelet Count 275 K/uL (130-400); RDW Standard Deviation 48.4 fL (36.4-46.3); Red Blood Count 3.72 M/uL (4.20-5.40); White Blood Count 9.94 K/ul (4.8-10.8)
[2025-02-16 07:27] VITALS: BP 120/72; PULSE 81; RESP 16; TEMP 97.7; O2SAT 95
[2025-02-16 07:46] LABS: Anion Gap 6.0 (3-11); Blood Urea Nitrogen 55.0 mg/dl (6-23); Calcium 9.0 mg/dl (8.6-10.3); Carbon Dioxide 24.0 mmol/L (21-32); Chloride 104.0 mmol/L (98-107); Creatinine Clr Calc Pharmacy 48.8 ml/min; Glucose 158.0 mg/dl (70-99(Fasting)); Magnesium 2.4 mg/dl (1.7-2.4); Potassium 4.5 mmol/L (3.5-5.1); Sodium 134.0 mmol/L (136-145)
--- NOTE | 2025-02-16 12:51 | Discharge Summary ---
Date of Service February 16, 2025 Admission HPI Per Admitting Provider This is an 79yo F without any known significant medical history who presents with worsening bilateral leg pain x 1 week. Patient lives in [place] but recently relocated here 2 weeks ago after getting remarried. Endorsing constant lower extremity pain from anterior thighs down to her ankles and feet that feels like a "spiraling" shock-like pain. Denies any numbness. Denies any bowel or bladder dysfunction. No pain in her back. Has been having generalized weakness and when she got up to stand yesterday her legs went out from under her and she fell to the ground, prompting her presenting to ED today. Does not have any known chronic medical conditions and does not take any meds at home other than the methylprednisolone taper and oxycodone she was prescribed at a hospital earlier this week. Has been treated at [facility] and [facility], given opiates and discharged home without relief of symptoms. Decreased appetite in the setting of uncontrolled pain. No fever, chills, chest pain, shortness of breath, nausea, vomiting, and abdominal pain, dysuria, diarrhea or constipation. Admission Exam Per Admitting Provider General Appearance: WD/WN, vitals as above, NAD, sitting up in bed, conversing easily Head: normocephalic, atraumatic Eyes: normal inspection, PERRL, conjunctivae normal, anicteric sclerae ENT: external ear and nose normal, oropharynx with dry mucous membranes Neck: normal visual inspection Respiratory: normal respiratory effort, lungs clear to auscultation, no wheeze, rales, rhonchi. No accessory muscle use Cardiovascular: regular rate, rhythm,normal peripheral pulses, no BLE edema. Vessels: no JVD Abdomen/GI: normal bowel sounds, soft, nontender, no hepatosplenomegaly Extremities/Musculoskeletal: no cyanosis or clubbing, extremities motor strength 4/5 RLE 5/5 LLE Neurologic: PERRL, EOMI, accommodation nl, no face palsy, no dysarthria, CN's II-XI intact bilaterally and moves all extremities Psychiatric: A+Ox3, euthymic affect Skin: no rashes, normal color, warm/dry Principal Diagnosis Bilateral leg pain Hyponatremia Discharge Exam General Appearance: WD/WN elderly F in NAD Head: normocephalic, atraumatic Eyes: normal inspection, PERRL ENT: external ear and nose normal Neck: normal visual inspection Respiratory: normal respiratory effort, lungs clear to auscultation, no wheeze, rales, rhonchi. No accessory muscle use Cardiovascular: regular rate, rhythm,no BLE edema. Abdomen/GI: normal bowel sounds, soft, nontender Extremities/Musculoskeletal: moves extremities, can stand up from bed Neurologic: PERRL, EOMI, no face palsy, no dysarthria, answers appropriately, moves all extremities Psychiatric: A+Ox3, euthymic affect Skin: no rashes, normal color, warm/dry Discharge Data Allergies Allergy/AdvReac Type Severity Reaction Status Date / Time No Known Allergies Allergy Unverified 02/13/25 16:48 Consultations 02/13/25 12:55 ED Decision to Admit Stat 02/13/25 13:41 Consult Orthopedic Spine Surgery Routine 02/13/25 14:25 Consult Gynecology Routine 02/14/25 10:15 Consult Nephrology Routine Ordered Studies 02/13/25 08:36 MR lumbar spine wo con Stat FINDINGS: Lumbar spine: Marrow signal intensity is heterogeneous. Vertebral body height is maintained throughout the lumbar spine. There is 6 mm of anterolisthesis at L4- L5. Alignment is otherwise preserved. Anterior and lateral marginal osteophytes are seen throughout. The transverse and spinous processes appear intact. There is no evidence of spondylolysis. A hemangioma suggested in the body of L2. No destructive bony lesion is seen. There is a Schmorl's node in the inferior endplate of L1. Chronic degenerative endplate change is noted at several levels. There is mild degenerative endplate edema at L2-L3 and L3-L4. Intervertebral discs: Disc desiccation loss of height is seen throughout the lumbar spine. Loss of height is moderate at L2-L3 and moderate the remaining levels. Spinal cord: Imaged portions of the spinal cord are normal in morphology and signal intensity. The conus medullaris terminates at the level of L1. The nerve roots of the cauda equina are normal in morphology. L1-L2: Unremarkable. L2-L3: There is broad-based posterior disc bulge with annular fissure. This abuts the transiting nerve roots. No significant central canal stenosis is seen. Lateral disc bulges cause bilateral subarticular stenosis. In conjunction with f acet arthropathy there is mild bilateral neural foraminal stenosis. L3-L4: There is broad-based posterior disc bulge with annular fissure. This abuts the transiting nerve roots. No significant central canal stenosis is seen. Lateral disc bulges cause bilateral subarticular stenosis. This may abut the exiting bilateral L3 nerve roots. In conjunction with facet arthropathy there is moderate left and mild right neural foraminal stenosis. L4-L5: There is broad-based posterior disc bulge with annular fissure which abuts the transiting nerve roots. No significant central canal stenosis is seen. Hypertrophy of the ligamentum flavum effaces the lateral aspect of the posterior thecal sac bilaterally. Lateral disc bulges cause bilateral subarticular stenosis and likely impinge on the exiting bilateral L4 nerve roots. In conjunction with facet arthropathy and anterolisthesis there is moderate right and moderate to severe left neural foraminal stenosis. L5-S1: There is broad-based posterior disc bulge with annular fissure which abuts the transiting nerve roots. No central canal stenosis is seen. Lateral disc bulges cause bilateral subarticular stenosis and abut the exiting bilateral L5 nerve roots. In conjunction with facet arthropathy there is moderate bilateral neural foraminal stenosis. Sacrum: The imaged sacrum is normal in morphology and signal intensity. Soft tissues: There is mild fatty atrophy of the paraspinous musculature. The bladder is markedly distended. Left hydroureteronephrosis is partially visualized. No hydronephrosis is seen on the right. A multiloculated cystic structure is partially visualized in the right adnexa. IMPRESSION: 1. The bladder is markedly distended and left-sided hydroureteronephrosis is partially visualized. This may be related to the degree of bladder distention. This is incompletely evaluated and other etiologies are not excluded. 2. Multilevel lumbosacral spondylosis as above with no significant central canal stenosis. See discussion for detailed level by level analysis. 3. Degenerative disc disease as above with associated endplate change. 4. No destructive bony process is identified. 5. A multiloculated cystic structure is partially visualized in the right adnexa. This may be related to the right ovary. A pelvic ultrasound is recommended in follow-up. 02/13/25 11:35 US pelvic complete Stat FINDINGS: Uterus: The uterus is surgically absent Ovaries: The left ovary was not visualized on the transabdominal examination, likely due to overlying bowel gas. There is a complex multiloculated cystic structure in the right posterior adnexa which measures 4.9 x 4.0 x 4.0 cm. This may be related to the right ovary and shows internal flow on color imaging. Pelvis: The bladder is significant bladder distention. There is no free fluid in the cul-de-sac. No left adnexal lesion is seen. IMPRESSION: 1. There is a complex multiloculated solid and cystic structure in the right po sterior adnexa which corresponds to the lesion seen by MRI. This is likely related to the right ovary. The lesion is pathologically indeterminate, and a neoplastic process would be impossible to exclude. Follow-up with gynecology is recommended. 2. The uterus is surgically absent. 3. Nonvisualization of the left ovary. 4. Marked bladder distention. Hospital Course (1) Bilateral lower extremity pain: (2) Generalized weakness: This is an 79yo F without any known significant medical history who presents with worsening bilateral leg pain x 1 week. L-spine MRI - Broad-based posterior bulge with annular fissure that abuts transitioning nerve roots noted from L2-S1 ESR 49 CRP 0.78 Persistent pain leading to ER visits at [facility] and [facility] earlier this week Had a fall to ground in setting of generalized weakness 2/2 above In ED received - diazepam, gabapentin, droperidol, toradol with minimal relief Given Decadron 6mg IV x 1 Ortho spine consulted - no plan for surgical intervention. PT/OT, pain management prn Pt was started on dexamethasone and gabapentin on admission PT/OT evals 02/14 Currently she is feeling much improved, she is able to stand up from bed 02/15 Today says she still has pain in ankles but anterior leg/thigh pain seems gone. Also feels tired, says she has not slept for days. 02/16 Pt reports feeling well, able to ambulate and wishes to be discharged. Will DC on gabapentin, medrol pack, baclofen prn. Explained she will need close PCP follow up - either here in [place] or at her home in [place]. Pt initially planned to stay in [place] and we arranged follow ups for her, now she may be going back to [place]. Pt understands and in agreement with the plan. (3) Bladder distension: On L-spine MRI - Bladder is markedly distended and left-sided hydroureteronephrosis is partially visualized. This may be related to the degree of bladder distention Mishra catheter for decompression -> was removed and pt is voiding w/o difficulty (4) Hyponatremia: Initial Na 127 in setting of poor intake, considering SIADH component given severe pain Serum osm 271 urine osm 357, random Na 98 Received 500ml NSS in ED - repeat Na that PM 125/126 Na this AM 134 Nephrology consulted - cont. FR 1.5L of fluid daily, cont. po lasix 10 mg daily and potassium 10 daily (5) Pelvic cyst in female: A multiloculated cystic structure is partially visualized in the right adnexa. This may be related to the right ovary. A pelvic ultrasound is recommended in follow-up - self sealing fuel tank builder consult recommended and placed Pelvic US 1. There is a complex multiloculated solid and cystic structure in the right posterior adnexa which corresponds to the lesion seen by MRI. This is likely related to the right ovary. The lesion is pathologically indeterminate, and a neoplastic process would be impossible to exclude. Follow-up with gynecology is recommended. 2. The uterus is surgically absent. 3. Nonvisualization of the left ovary. 4. Marked bladder distention. Hair Tinter consulted - several tumor markers ordered - plan to follow up as outpt. If pt goes to [place] instead - she will need results/ records. Total Time Total Time Spent Total Time Spent (In Minutes): 40 Discharge Plan Discharge Items Patient Disposition: Home - Self-Care Reason For Visit: BILATERAL LEG PAIN Discharge Diagnosis: Bilateral leg pain Hyponatremia Condition on Discharge: Fair Activity: Per Instructions section Non-emergency contact: Primary Care Provider Call non-emergency contact if: you have any medication questions and your symptoms worsen Follow-up/Referrals: Keyla Epstein MD [Physician] - (Please schedule a follow up visit with Dr Aguilar or Nikhil) Mateo Cooley MD [Surgeon] - (As needed for low back/leg pain ) PCP,NO [Primary Care Provider] - (PATIENT LIVES IN [place] AND WILL BE RETURNING THERE ONCE SHE IS DISCHARED.) Diet: Regular Fluids: 1500ml (6 cups) Addtl Attending Provider Instructions: Follow up with primary care provider, mainframe analyst, site administrator. You should be seen by primary care provider within 1-2 weeks from hospital discharge. For hyponatremia (low sodium level) - take lasix (furosemide) 10 mg daily and take potassium 10 daily. Follow up with primary care doctor/ site administrator and have your blood work done to re-check your sodium levels. Also recommend fluid restriction 1.5L daily - protein shakes do not count to fluid restriction. Protein intake recommended. For leg pain, you were started on nerve pain medication - gabapentin - currently taking 300 three times a day. This medication can make you drowsy. Also take medrol pack (steroid taper), as prescribed. Addtl Fall Intern Provider Instructions: Per gynecology - need to follow up on adnexal mass and tumor markers that were sent. Address [address] [place] [address] Please schedule f/u with Dr Aguilar or Dr Tejeda ([facility] gynecology) Pending Studies at Discharge: Yes Studies:: tumor markers for adnexal mass eval Stand-Alone Forms: My [facility] [employer], Smoking Cessation Medications and DC Order Prescriptions: New gabapentin 300 mg Capsule 300 mg PO TID Qty: 60 0RF acetaminophen [Tylenol Extra Strength] 500 mg Tablet 1,000 mg PO Q8H Qty: 20 0RF cyclobenzaprine 5 mg Tablet 5 mg PO TID PRN (Reason: muscle spasm) Qty: 10 0RF furosemide 20 mg tablet 10 mg PO DAILY Qty: 20 0RF potassium chloride 10 mEq tablet extended release 10 meq PO DAILY Qty: 30 0RF methylprednisolone [Medrol (Beau)] 4 mg tablets,dose pack 4 mg PO UD Qty: 21 0RF Rx Instructions: Take 6 tabs, next day take 5 tabs, next day take 4, next day take 3, next day take 2 tabs, last day take 1 tab famotidine [Pepcid] 40 mg tablet 40 mg PO DAILY Qty: 20 0RF No Action methylprednisolone 4 mg tablets,dose pack See Rx Instructions .ROUTE .COMPLEX Rx Instructions: Start Date 02/09/25 x6 day supply: TAKE BY MOUTH DIRECTED ON INSIDE OF [place]ANDIE PAYAN oxycodone 5 mg tablet 5 mg PO Q6H PRN (Reason: Pain) Discharge Orders: Discharge Order (Routine); Ordered 02/16/25 Ordered By: Parker Bahena Admission Data Admit Date/Time: 02/13/25 13:41 Attending Provider: Parker Bahena Admit Provider: Jairo Altman Primary Care Provider: PCP,NO Other Providers: Jairo Altman; Mateo Cooley; Keyla Epstein; Mary Patiño Other Interventions: Discharge Summary Assessment (RN) Last Done: 02/16/25 12:49
== END 2025-02-16 15:25 | disposition home or self-care (01) | DRG 552 ==
LOC: ED 08:07 → 3N 13:41 → SUATTDRO 13:41 → 3N 15:55